=== PATIENT | male | born 1965 | race Caucasian/White ===

== ENCOUNTER 2018-07-26 02:09 | Emergency (ER) | payer BC, SELFPAY ==
--- NOTE | 2018-07-26 03:22 | EDPHYS ---
Physician Documentation [facility] Name: Jose Antonio Summers Age: 53 yrs Sex: Male : 1965 Arrival Date: 07/26/2018 Time: 02:12 Bed 5 Private MD: ED Physician Israel Akhtar HPI: 07/26 03:12 This 53 yrs old Male presents to ER via Wheelchair with complaints of Leg tw4 Pain. 03:12 The patient presents with pain, that is chronic. The complaints affect the right tw4 quadriceps, right knee, right dent and anterior aspect of right ankle. Context: The problem was sustained at home. Onset: The symptoms/episode began/occurred today. Modifying factors: The symptoms are alleviated by nothing. the symptoms are aggravated by nothing. Severity of symptoms: At their worst the symptoms were mild, in the emergency department the symptoms are unchanged. Historical: - Allergies: 02:30 No Known Allergies; fc - Home Meds: 02:30 hydrocortisone 20 mg Oral tab 1 tab 2 times per day [Active]; levothyroxine 25 mcg tab fc 1 tab once daily [Active]; lisinopril 30 mg Oral tab 1 tab once daily [Active]; fenofibrate 160 mg oral tab 1 tab once daily [Active]; atorvastatin oral oral once daily [Active]; gabapentin oral oral 3 times per day [Active]; Zantac 150 mg Oral tab 1 tab once daily [Active]; Lexapro Oral once daily [Active]; AndroGel transdermal transdermal 2 packets nightly [Active]; Lantus 100 unit/mL Sub-Q soln 100 unit nightly [Active]; Humalog 100 unit/mL Sub-Q soln ac and hs on sliding sclae [Active]; - PMHx: 02:30 Hypothyroidism; Hypertension; High Cholesterol; Hyperlipidemia; neuropathy; GERD; fc Depression; Acromegaly; - Immunization history:: Last tetanus immunization: up to date. - Social history:: Smoking status: Patient/guardian denies using tobacco, Patient uses alcohol, occasionally. - Ebola Screening: : Patient negative for fever greater than or equal to 101.5 degrees Fahrenheit, and additional compatible Ebola Virus Disease symptoms Patient denies exposure to infectious person Patient denies travel to an Ebola-affected area in the 21 days before illness onset. ROS: 03:12 Constitutional: Negative for fever, chills, and weight loss, Eyes: Negative for injury, tw4 pain, redness, and discharge, Cardiovascular: Negative for chest pain, palpitations, and edema, Respiratory: Negative for shortness of breath, cough, wheezing, and pleuritic chest pain, Abdomen/GI: Negative for abdominal pain, nausea, vomiting, diarrhea, and constipation, Back: Negative for injury and pain, Skin: Negative for injury, rash, and discoloration, Neuro: Negative for headache, weakness, numbness, tingling, and seizure. 03:12 MS/extremity: Positive for pain. Exam: 03:12 Constitutional: This is a well developed, well nourished patient who is awake, alert, tw4 and in no acute distress. Head/Face: Normocephalic, atraumatic. Chest/axilla: Normal chest wall appearance and motion. Nontender with no deformity. No lesions are appreciated. Cardiovascular: Regular rate and rhythm with a normal S1 and S2. No gallops, murmurs, or rubs. Normal PMI, no JVD. No pulse deficits. Respiratory: Lungs have equal breath sounds bilaterally, clear to auscultation and percussion. No rales, rhonchi or wheezes noted. No increased work of breathing, no retractions or nasal flaring. Abdomen/GI: Soft, non-tender, with normal bowel sounds. No distension or tympany. No guarding or rebound. No evidence of tenderness throughout. Back: No spinal tenderness. No costovertebral tenderness. Full range of motion. MS/ Extremity: Pulses equal, no cyanosis. Neurovascular intact. Full, normal range of motion. Neuro: Awake and alert, GCS 15, oriented to person, place, time, and situation. Cranial nerves II-XII grossly intact. Motor strength 5/5 in all extremities. Sensory grossly intact. Cerebellar exam normal. Normal gait. Vital Signs: 02:10 BP 137 / 87; Pulse 82; Resp 18; Temp 97.3(O); Pulse Ox 95% on R/A; Weight 145.15 kg fc (R); Height 6 ft. 1 in. (185.42 cm) (R); Pain 6/10; 02:10 Body Mass Index 42.22 (145.15 kg, 185.42 cm) MDM: 02:25 Patient medically screened. tw4 03:12 Differential diagnosis: closed fracture, contusion, abrasion, tendonitis. Data tw4 reviewed: vital signs, nurses notes. Test interpretation: by ED physician or midlevel provider: ultrasound negative for DVT. Counseling: I had a detailed discussion with the patient and/or guardian regarding: the historical points, exam findings, and any diagnostic results supporting the discharge/admit diagnosis, lab results, radiology results. Special discussion: I discussed with the patient/guardian in detail that at this point there is no indication for admission to the hospital. It is understood, however, that if the symptoms persist or worsen the patient needs to return immediately for re-evaluation. 07/26 02:27 Order name: Extremity Venous Uni Ltd tw4 Administered Medications: No medications were administered Disposition: 07/26/18 03:21 Discharged to Home. Impression: Sleep related leg cramps. - Condition is Stable. - Discharge Instructions: Leg Cramps. - Prescriptions for Tramadol 50 mg Oral Tablet - take 1 tablet by ORAL route every 8 hours as needed; 12 tablet. - Medication Reconciliation Form, Thank You Letter, Antibiotic Education, Prescription Opioid Use form. - Follow up: Private Physician; When: Upon discharge from the Emergency Department; Reason: If symptoms return, Recheck today's complaints, Continuance of care. Signatures: Dispatcher [employer] EDHortencia Johnson, RN RN Lian Mclain RN RN lp1 Israel Akhtar MD MD tw4 Corrections: (The following items were deleted from the chart) 03:31 03:21 07/26/2018 03:21 Discharged to Home. Impression: Sleep related leg cramps. lp1 Condition is Stable. Forms are Medication Reconciliation Form, Thank You Letter, Antibiotic Education, Prescription Opioid Use. Follow up: Private Physician; When: Upon discharge from the Emergency Department; Reason: If symptoms return, Recheck today's complaints, Continuance of care. tw4
--- NOTE | 2018-07-26 03:22 | ER ---
Nurse's Notes [facility] Name: Jose Antonio Summers Age: 53 yrs Sex: Male : 1965 Arrival Date: 07/26/2018 Time: 02:12 Bed 5 Private MD: Diagnosis: Sleep related leg cramps Presentation: 07/26 02:10 Presenting complaint: Patient states: that he is having leg pain from hip down on the right side since last week of May. Was seen yesterday by PCP and given Gabapentin. He is concerned about the "black and blue spots " on his leg that are coming and going. Transition of care: patient was not received from another setting of care. Onset of symptoms was May 2018. Risk Assessment: Do you want to hurt yourself or someone else? Patient reports no desire to harm self or others. Initial Sepsis Screen: Does the patient meet any 2 criteria? No. Patient's initial sepsis screen is negative. Does the patient have a suspected source of infection? No. Patient's initial sepsis screen is negative. Care prior to arrival: None. 02:10 Method Of Arrival: Wheelchair 02:10 Acuity: SANKET 4 fc Historical: - Allergies: 02:30 No Known Allergies; fc - Home Meds: 02:30 hydrocortisone 20 mg Oral tab 1 tab 2 times per day [Active]; levothyroxine 25 mcg tab fc 1 tab once daily [Active]; lisinopril 30 mg Oral tab 1 tab once daily [Active]; fenofibrate 160 mg oral tab 1 tab once daily [Active]; atorvastatin oral oral once daily [Active]; gabapentin oral oral 3 times per day [Active]; Zantac 150 mg Oral tab 1 tab once daily [Active]; Lexapro Oral once daily [Active]; AndroGel transdermal transdermal 2 packets nightly [Active]; Lantus 100 unit/mL Sub-Q soln 100 unit nightly [Active]; Humalog 100 unit/mL Sub-Q soln ac and hs on sliding sclae [Active]; - PMHx: 02:30 Hypothyroidism; Hypertension; High Cholesterol; Hyperlipidemia; neuropathy; GERD; fc Depression; Acromegaly; - Immunization history:: Last tetanus immunization: up to date. - Social history:: Smoking status: Patient/guardian denies using tobacco, Patient uses alcohol, occasionally. - Ebola Screening: : Patient negative for fever greater than or equal to 101.5 degrees Fahrenheit, and additional compatible Ebola Virus Disease symptoms Patient denies exposure to infectious person Patient denies travel to an Ebola-affected area in the 21 days before illness onset. Screenin:10 Abuse screen: Denies threats or abuse. Nutritional screening: No deficits noted. fc Tuberculosis screening: No symptoms or risk factors identified. Fall Risk None identified. Assessment: 02:15 General: Appears in no apparent distress. Behavior is calm, cooperative, appropriate lp1 for age. Pain: Complains of pain in right leg Pain currently is 6 out of 10 on a pain scale. Quality of pain is described as aching, Aggravated by repositioning, weight bearing. Neuro: No deficits noted. Cardiovascular: No deficits noted. Respiratory: No deficits noted. GI: No deficits noted. : No deficits noted. EENT: No deficits noted. Derm: Skin is pink, warm \\T\\ dry. Musculoskeletal: Range of motion: intact in all extremities. 02:55 Reassessment: Ultrasound at bedside. lp1 Vital Signs: 02:10 BP 137 / 87; Pulse 82; Resp 18; Temp 97.3(O); Pulse Ox 95% on R/A; Weight 145.15 kg (R); Height 6 ft. 1 in. (185.42 cm) (R); Pain 6/10; 02:10 Body Mass Index 42.22 (145.15 kg, 185.42 cm) ED Course: 02:10 Arm band placed on Patient placed in an exam room, on a stretcher. fc 02:10 Patient has correct armband on for positive identification. Bed in low position. Call light in reach. 02:10 No provider procedures requiring assistance completed. fc 02:12 Patient arrived in ED. ds1 02:18 Alis Araujo is Primary Nurse. cc3 02:24 Triage completed. fc 02:25 Israel Akhtar MD is Attending Physician. tw4 02:57 Lian Mclain, ARANZA is Primary Nurse. lp1 03:06 Extremity Venous Uni Ltd US In Process Unspecified. EDMS 03:31 Patient did not have IV access during this emergency room visit. lp1 Administered Medications: No medications were administered Outcome: 03:21 Discharge ordered by . tw4 03:31 Discharged to home ambulatory. lp1 03:31 Condition: good 03:31 Discharge instructions given to patient, Instructed on discharge instructions, follow up and referral plans. medication usage, Demonstrated understanding of instructions, follow-up care, medications, Prescriptions given X 1. 03:31 Patient left the ED. lp1 Signatures: Dispatcher [employer] EDMS Hortencia Dejesus RN RN fc Sanford, Demi ds1 Lian Mclain RN RN lp1 Israel Akhtar MD MD tw4 Alis Araujo cc3
--- NOTE | 2018-07-26 08:27 | RAD REPORT ---
EXAM DESCRIPTION: USExtremity Venous Uni Ltd07/26/2018 3:06 am CLINICAL HISTORY: Right leg pain . COMPARISON: None. FINDINGS: Right common femoral, superficial femoral, popliteal and right posterior tibial veins are compressible and demonstrate augmentation. Doppler demonstrates good flow. IMPRESSION: No evidence of deep venous thrombosis involving the right lower extremity.
== END 2018-07-26 03:31 | disposition home or self-care (01) ==
LOC: ER 02:09
DX: G47.62 Sleep related leg cramps (principal); E03.9 Hypothyroidism, unspecified; I10 Essential (primary) hypertension; E78.00 Pure hypercholesterolemia, unspecified; E78.5 Hyperlipidemia, unspecified; K21.9 Gastro-esophageal reflux disease without esophagitis; F32.9 Major depressive disorder, single episode, unspecified; Z79.4 Long term (current) use of insulin
CPT/HCPCS: 93971; 99283

== ENCOUNTER 2018-08-04 03:01 | Emergency (ER) | payer BC ==
[2018-08-04] MEDS ORDERED: DEXAMETHASONE 10 MG/ML VIAL ONE (03:41)
[2018-08-04] MEDS ORDERED: DIAZEPAM 5 MG TABLET ONE (03:41)
[2018-08-04] MEDS ORDERED: ONDANSETRON 4 MG/2 ML VIAL ONE (03:42)
[2018-08-04] MEDS ORDERED: MORPHINE 4 MG/ML SYR ONE (03:42)
[2018-08-04] MEDS ORDERED: NA CHLORIDE 0.9% 1,000 ML ONE (03:42)
[2018-08-04] MEDS ORDERED: KETOROLAC 30 MG/ML INJ ONE (03:42)
[2018-08-04 05:06] LABS: Urine Blood NEGATIVE (NEG); Urine Glucose 2+ (NEG); Urine Protein NEGATIVE (NEG); Urine pH 5.5 (5.0-7.0)
[2018-08-04 05:38] LABS: Absolute Lymphocytes (CBC) 1.2 K/uL (0.7-4.9); Absolute Monocytes 0.4 K/uL (0.1-1.3); Absolute Neutrophil 4.1 K/uL (1.8-8.0); Basophils % 0.6 % (0-1.3); Eosinophils % 4.2 % (0-4.4); Hematocrit 44.6 % (39.6-49.0); Lymphocytes % 20.1 % (15.3-44.8); MPV 9.6 fL (7.6-11.3); RBC Red Blood Cell Count 4.78 M/uL (4.33-5.43)
--- NOTE | 2018-08-04 06:12 | ER ---
Nurse's Notes [facility] Name: Jose Antonio Summers Age: 53 yrs Sex: Male : 1965 Arrival Date: 08/04/2018 Time: 03:04 Bed 19 Private MD: Diagnosis: Pain in right leg-adductor tendonitis;Pain in right hip;Low back pain;Unspecified kidney failure-insufficency Presentation: 08/04 03:12 Presenting complaint: Patient states: My leg is hurting like last time. Transition of ed1 care: patient was not received from another setting of care. Onset of symptoms was June 2018. Risk Assessment: Do you want to hurt yourself or someone else? Patient reports no desire to harm self or others. Initial Sepsis Screen: Does the patient meet any 2 criteria? No. Patient's initial sepsis screen is negative. Does the patient have a suspected source of infection? No. Patient's initial sepsis screen is negative. Care prior to arrival: None. 03:12 Method Of Arrival: Wheelchair ed1 03:12 Acuity: SANKET 4 ed1 Triage Assessment: 03:16 General: Appears uncomfortable, Behavior is calm, cooperative. Pain: Complains of pain ed1 in right hip Pain radiates to right leg Pain currently is 7 out of 10 on a pain scale. Quality of pain is described as burning, aching, Pain began about 6 weeks ago Is intermittent, Aggravated by increased activity. EENT: No signs and/or symptoms were reported regarding the EENT system. Neuro: Level of Consciousness is awake, alert, obeys commands, Oriented to person, place, time, situation. Cardiovascular: Denies chest pain, Heart tones S1 S2 present. Respiratory: Airway is patent Respiratory effort is even, unlabored, Respiratory pattern is regular, symmetrical, Breath sounds are clear bilaterally. Denies cough, shortness of breath. GI: Abdomen is obese, Bowel sounds present X 4 quads. Abd is soft and non tender X 4 quads. Patient currently denies diarrhea, nausea, vomiting. : No signs and/or symptoms were reported regarding the genitourinary system. Derm: Skin is intact, is healthy with good turgor, Skin is dry, Skin is normal, Skin temperature is warm. Musculoskeletal: Circulation, motion, and sensation intact. Capillary refill < 3 seconds, in bilateral toes. Range of motion: intact in all extremities, Swelling absent Reports pain in right hip. Historical: - Allergies: 03:16 No Known Allergies; ed1 - Home Meds: 03:16 AndroGel transdermal 2 packets nightly [Active]; atorvastatin Oral once daily [Active]; ed1 fenofibrate 160 mg Oral tab 1 tab once daily [Active]; gabapentin Oral 3 times per day [Active]; Humalog 100 unit/mL Sub-Q soln ac and hs on sliding sclae [Active]; hydrocortisone 20 mg Oral tab 1 tab 2 times per day [Active]; Lantus 100 unit/mL Sub-Q soln 100 unit nightly [Active]; levothyroxine 25 mcg tab 1 tab once daily [Active]; Lexapro Oral once daily [Active]; lisinopril 30 mg Oral tab 1 tab once daily [Active]; Zantac 150 mg Oral tab 1 tab once daily [Active]; - PMHx: 03:16 acromegaly; Depression; GERD; High Cholesterol; Hyperlipidemia; Hypertension; ed1 Hypothyroidism; neuropathy; - Immunization history:: Adult Immunizations up to date. - Social history:: Smoking status: Patient/guardian denies using tobacco. - Ebola Screening: : Patient negative for fever greater than or equal to 101.5 degrees Fahrenheit, and additional compatible Ebola Virus Disease symptoms Patient denies exposure to infectious person Patient denies travel to an Ebola-affected area in the 21 days before illness onset No symptoms or risks identified at this time. - Family history:: not pertinent. Screenin:20 Abuse screen: Denies threats or abuse. Denies injuries from another. Nutritional ed1 screening: No deficits noted. Tuberculosis screening: No symptoms or risk factors identified. Fall Risk No fall in past 12 months (0 pts). No secondary diagnosis (0 pts). No IV (0 pts). Ambulatory Aid- Crutches/Cane/Walker (15 pts). Gait- Weak (10 pts.). Mental Status- Oriented to own ability (0 pts). Total Castellanos Fall Scale indicates Low Risk Score (25-44 pts). Fall prevention measures have been instituted. Side Rails Up X 2 Frequent Obs/Assesments occuring As available Patient and Family Educated on Fall Prevention Program and strategies. Assessment: 03:20 General: See triage assessment. ed1 04:07 Reassessment: No changes from previously documented assessment. Patient and/or family ed1 updated on plan of care and expected duration. Pain level reassessed. Patient is alert, oriented x 3, equal unlabored respirations, skin warm/dry/pink. Pt returned from x-ray. Pt requests to remain in wheelchair for comfort. Patient states symptoms have not improved. 04:51 Reassessment: Pt ambulatory to bathroom with steady gait. Pt states "I almost feel 100% ed1 again.". 05:13 Reassessment: Patient appears in no apparent distress at this time. Patient and/or ed1 family updated on plan of care and expected duration. Pain level reassessed. Patient is alert, oriented x 3, equal unlabored respirations, skin warm/dry/pink. Patient states feeling better. Patient states symptoms have improved. 06:47 Reassessment: Patient appears in no apparent distress at this time. Patient and/or ed1 family updated on plan of care and expected duration. Pain level reassessed. Patient is alert, oriented x 3, equal unlabored respirations, skin warm/dry/pink. Patient states feeling better. Patient states symptoms have improved. Vital Signs: 03:16 BP 150 / 96; Pulse 70; Resp 18; Temp 98.1(O); Pulse Ox 94% on R/A; Pain 7/10; ed1 04:07 BP 131 / 78; Pulse 64; Resp 16; Temp 98.1(O); Pulse Ox 94% on R/A; Pain 7/10; ed1 05:13 BP 142 / 83; Pulse 67; Resp 18; Temp 98.5(O); Pulse Ox 96% on R/A; Pain 4/10; ed1 06:47 BP 139 / 76; Pulse 71; Resp 19; Temp 97.9(O); Pulse Ox 94% on R/A; Pain 4/10; ed1 ED Course: 03:04 Patient arrived in ED. ds1 03:05 Delia Oro, ARANZA is Primary Nurse. ed1 03:07 El Castillo MD is Attending Physician. marco 03:13 Triage completed. ed1 03:16 Arm band placed on left wrist. ed1 03:20 Patient has correct armband on for positive identification. Bed in low position. Call ed1 light in reach. Side rails up X2. Pulse ox on. NIBP on. 03:30 Comprehensive Metabolic Panel Sent. jd3 03:30 CBC with Diff Sent. jd3 03:38 Initial lab(s) drawn, by me, sent to lab. Inserted saline lock: 20 gauge in right ed1 forearm, using aseptic technique. Blood collected. 03:50 Patient moved to radiology via wheelchair. kw 03:50 X-ray completed. Patient tolerated procedure well. kw 03:56 Patient moved back from radiology. kw 03:59 Pelvis XRAY In Process Unspecified. EDMS 03:59 Lumbar Spine (3 Views) XRAY In Process Unspecified. EDMS 03:59 Femur Right XRAY In Process Unspecified. EDMS 04:51 Urine collected: clean catch specimen, clear. ed1 05:13 Resting quietly. Awaiting disposition. ed1 05:33 Lab(s) recollected, by me, sent to lab. ed1 06:09 Manjit Ventura MD is Referral Physician. [facility] 06:29 Awaiting: Dr. Castillo to speak with patient in regards to discharge. ed1 06:47 No provider procedures requiring assistance completed. IV discontinued, intact, ed1 bleeding controlled, No redness/swelling at site. Pressure dressing applied. 06:54 Primary Nurse role handed off by Delia Oro RN ed1 Administered Medications: 03:39 Drug: NS 0.9% 1000 ml Route: IV; Rate: 125 ml/hr; Site: right forearm; ed1 06:48 Follow up: IV Status: Order to discontinue infusion; IV Intake: 325ml ed1 03:39 Drug: TORadol 30 mg Route: IVP; Site: right forearm; ed1 04:30 Follow up: Response: No adverse reaction; Pain is decreased ed1 03:39 Drug: Zofran 4 mg Route: IVP; Site: right forearm; ed1 04:45 Follow up: Response: No adverse reaction ed1 03:40 Drug: morphine 4 mg Route: IVP; Site: right forearm; ed1 04:30 Follow up: Response: No adverse reaction; Pain is decreased ed1 04:10 Drug: Decadron - Dexamethasone 10 mg Route: IVP; Site: right forearm; ed1 04:45 Follow up: Response: No adverse reaction; Pain is decreased ed1 04:11 Drug: Valium 5 mg Route: PO; ed1 04:45 Follow up: Response: No adverse reaction; Pain is decreased ed1 Intake: 06:48 IV: 325ml; Total: 325ml. ed1 Outcome: 06:11 Discharge ordered by . marco 06:47 Discharged to home ambulatory, with friend. ed1 06:47 Condition: good 06:47 Discharge instructions given to patient, Instructed on discharge instructions, follow up and referral plans. medication usage, Demonstrated understanding of instructions, follow-up care, medications, Prescriptions given X 3. 06:49 Patient left the ED. ed1 Signatures: Dispatcher [employer] EDMS El Castillo MD MD cha Sanford, Demi ds1 Delia Oro RN RN ed1 Garima Butt Jonathon RN RN jd3
--- NOTE | 2018-08-04 06:12 | EDPHYS ---
Physician Documentation [facility] Name: Jose Antonio Summers Age: 53 yrs Sex: Male : 1965 Arrival Date: 08/04/2018 Time: 03:04 Bed 19 Private MD: LINDA Physician El Castillo HPI: 08/04 03:19 This 53 yrs old Male presents to ER via Wheelchair with complaints of Leg marco Pain. 03:19 The patient presents with decreased range of motion, pain. The complaints affect the marco right upper thigh and right quadriceps. Context: The problem was sustained at an unknown site. Onset: The symptoms/episode began/occurred 4 week(s) ago. Modifying factors: The symptoms are alleviated by nothing. remaining still, the symptoms are aggravated by nothing. Associated signs and symptoms: The patient has no apparent associated signs or symptoms. Severity of symptoms: At their worst the symptoms were moderate, in the emergency department the symptoms are unchanged. The patient has experienced similar episodes in the past, several times. Historical: - Allergies: 03:16 No Known Allergies; ed1 - Home Meds: 03:16 AndroGel transdermal 2 packets nightly [Active]; atorvastatin Oral once daily [Active]; ed1 fenofibrate 160 mg Oral tab 1 tab once daily [Active]; gabapentin Oral 3 times per day [Active]; Humalog 100 unit/mL Sub-Q soln ac and hs on sliding sclae [Active]; hydrocortisone 20 mg Oral tab 1 tab 2 times per day [Active]; Lantus 100 unit/mL Sub-Q soln 100 unit nightly [Active]; levothyroxine 25 mcg tab 1 tab once daily [Active]; Lexapro Oral once daily [Active]; lisinopril 30 mg Oral tab 1 tab once daily [Active]; Zantac 150 mg Oral tab 1 tab once daily [Active]; - PMHx: 03:16 acromegaly; Depression; GERD; High Cholesterol; Hyperlipidemia; Hypertension; ed1 Hypothyroidism; neuropathy; - Immunization history:: Adult Immunizations up to date. - Social history:: Smoking status: Patient/guardian denies using tobacco. - Ebola Screening: : Patient negative for fever greater than or equal to 101.5 degrees Fahrenheit, and additional compatible Ebola Virus Disease symptoms Patient denies exposure to infectious person Patient denies travel to an Ebola-affected area in the 21 days before illness onset No symptoms or risks identified at this time. - Family history:: not pertinent. ROS: 03:19 Constitutional: Negative for fever, chills, and weight loss, Eyes: Negative for injury, marco pain, redness, and discharge, ENT: Negative for injury, pain, and discharge, Neck: Negative for injury, pain, and swelling, Cardiovascular: Negative for chest pain, palpitations, and edema, Respiratory: Negative for shortness of breath, cough, wheezing, and pleuritic chest pain, Abdomen/GI: Negative for abdominal pain, nausea, vomiting, diarrhea, and constipation, Back: Negative for injury and pain, : Negative for injury, bleeding, discharge, and swelling, Skin: Negative for injury, rash, and discoloration, Neuro: Negative for headache, weakness, numbness, tingling, and seizure, Psych: Negative for depression, anxiety, suicide ideation, homicidal ideation, and hallucinations, Allergy/Immunology: Negative for hives, rash, and allergies, Endocrine: Negative for neck swelling, polydipsia, polyuria, polyphagia, and marked weight changes, Hematologic/Lymphatic: Negative for swollen nodes, abnormal bleeding, and unusual bruising. 03:19 MS/extremity: Positive for decreased range of motion, pain, of the right inner thigh. Exam: 03:19 Constitutional: This is a well developed, well nourished patient who is awake, alert, marco and in no acute distress. Head/Face: Normocephalic, atraumatic. Eyes: Pupils equal round and reactive to light, extra-ocular motions intact. Lids and lashes normal. Conjunctiva and sclera are non-icteric and not injected. Cornea within normal limits. Periorbital areas with no swelling, redness, or edema. ENT: Nares patent. No nasal discharge, no septal abnormalities noted. Tympanic membranes are normal and external auditory canals are clear. Oropharynx with no redness, swelling, or masses, exudates, or evidence of obstruction, uvula midline. Mucous membranes moist. Neck: Trachea midline, no thyromegaly or masses palpated, and no cervical lymphadenopathy. Supple, full range of motion without nuchal rigidity, or vertebral point tenderness. No Meningismus. Chest/axilla: Normal chest wall appearance and motion. Nontender with no deformity. No lesions are appreciated. Cardiovascular: Regular rate and rhythm with a normal S1 and S2. No gallops, murmurs, or rubs. Normal PMI, no JVD. No pulse deficits. Respiratory: Lungs have equal breath sounds bilaterally, clear to auscultation and percussion. No rales, rhonchi or wheezes noted. No increased work of breathing, no retractions or nasal flaring. Abdomen/GI: Soft, non-tender, with normal bowel sounds. No distension or tympany. No guarding or rebound. No evidence of tenderness throughout. Back: No spinal tenderness. No costovertebral tenderness. Full range of motion. Male : Normal genitalia with no discharge or lesions. Skin: Warm, dry with normal turgor. Normal color with no rashes, no lesions, and no evidence of cellulitis. Neuro: Awake and alert, GCS 15, oriented to person, place, time, and situation. Cranial nerves II-XII grossly intact. Motor strength 5/5 in all extremities. Sensory grossly intact. Cerebellar exam normal. Normal gait. Psych: Awake, alert, with orientation to person, place and time. Behavior, mood, and affect are within normal limits. 03:19 Musculoskeletal/extremity: Extremities: noted in the right inner thigh: decreased ROM, pain, ROM: full active range of motion, full passive range of motion, limited active range of motion due to pain, limited passive range of motion due to pain, Circulation is intact in all extremities. Sensation intact. Compartment Syndrome exam of affected extremity: is normal. Weight bearing: able to fully bear weight, without difficulty, DVT Exam: no swelling, no tenderness, negative Homans' sign noted on exam, no appreciated bluish discoloration, no erythema, no increased warmth, pain, Calves: are non-tender. Vital Signs: 03:16 BP 150 / 96; Pulse 70; Resp 18; Temp 98.1(O); Pulse Ox 94% on R/A; Pain 7/10; ed1 04:07 BP 131 / 78; Pulse 64; Resp 16; Temp 98.1(O); Pulse Ox 94% on R/A; Pain 7/10; ed1 05:13 BP 142 / 83; Pulse 67; Resp 18; Temp 98.5(O); Pulse Ox 96% on R/A; Pain 410; ed1 06:47 BP 139 / 76; Pulse 71; Resp 19; Temp 97.9(O); Pulse Ox 94% on R/A; Pain 410; ed1 MDM: 03:07 Patient medically screened. [facility] 03:19 Data reviewed: vital signs, nurses notes, lab test result(s), radiologic studies, marco doppler, plain films. 08/04 03:19 Order name: CBC with Diff; Complete Time: 06:11 [facility] 08/04 03:19 Order name: Comprehensive Metabolic Panel; Complete Time: 06:28 [facility] 08/04 03:19 Order name: Pelvis XRAY [facility] 08/04 03:19 Order name: Lumbar Spine (3 Views) XRAY [facility] 08/04 03:30 Order name: Femur Right XRAY [facility] 08/04 04:58 Order name: Urine Dipstick--Ancillary (enter results); Complete Time: 06:11 [facility] 08/04 03:19 Order name: Urine Dipstick-Ancillary (obtain specimen); Complete Time: 04:52 [facility] Administered Medications: 03:39 Drug: NS 0.9% 1000 ml Route: IV; Rate: 125 ml/hr; Site: right forearm; ed1 06:48 Follow up: IV Status: Order to discontinue infusion; IV Intake: 325ml ed1 03:39 Drug: TORadol 30 mg Route: IVP; Site: right forearm; ed1 04:30 Follow up: Response: No adverse reaction; Pain is decreased ed1 03:39 Drug: Zofran 4 mg Route: IVP; Site: right forearm; ed1 04:45 Follow up: Response: No adverse reaction ed1 03:40 Drug: morphine 4 mg Route: IVP; Site: right forearm; ed1 04:30 Follow up: Response: No adverse reaction; Pain is decreased ed1 04:10 Drug: Decadron - Dexamethasone 10 mg Route: IVP; Site: right forearm; ed1 04:45 Follow up: Response: No adverse reaction; Pain is decreased ed1 04:11 Drug: Valium 5 mg Route: PO; ed1 04:45 Follow up: Response: No adverse reaction; Pain is decreased ed1 Disposition: 08/04/18 06:11 Discharged to Home. Impression: Pain in right leg - adductor tendonitis, Pain in right hip, Low back pain, Unspecified kidney failure - insufficency. - Condition is Stable. - Discharge Instructions: Joint Pain, Arthritis, Back Pain, Adult, Musculoskeletal Pain, Pain Without a Known Cause, Back Injury Prevention, [id number], Back Pain, Adult, [id number]-fi-Okbq, Hip Pain, Chronic Kidney Disease, Adult, Jgws-pq-Opyu. - Prescriptions for dexamethasone 2 mg Oral tablet - take 1 tablet by ORAL route 2 times per day; 14 tablet. Tylenol- Codeine #3 300-30 mg Oral Tablet - take 2 tablet by ORAL route every 6 hours As needed; 30 tablet. Valium 5 mg Oral Tablet - take 1 tablet by ORAL route every 8 hours As needed; 20 tablet. - Medication Reconciliation Form, Thank You Letter, Antibiotic Education, Prescription Opioid Use form. - Follow up: Private Physician; When: 2 - 3 days; Reason: Recheck today's complaints, Continuance of care, Re-evaluation by your physician. Follow up: Manjit Ventura; When: 2 - 3 days; Reason: Recheck today's complaints, Re-evaluation by your physician. - Problem is new. - Symptoms have improved. Signatures: Dispatcher [employer] EDMS El Castillo MD MD cha Riggs, Erika RN RN ed1 Corrections: (The following items were deleted from the chart) 06:31 06:11 08/04/2018 06:11 Discharged to Home. Impression: Pain in right leg - adductor marco tendonitis; Pain in right hip; Low back pain. Condition is Stable. Discharge Instructions: Musculoskeletal Pain, Pain Without a Known Cause, Joint Pain, Arthritis, Back Pain, Adult, Back Injury Prevention, [id number], Back Pain, Adult, Vlfm-[id number], Hip Pain. Prescriptions for dexamethasone 2 mg Oral tablet - take 1 tablet by ORAL route 2 times per day; 14 tablet, Ibuprofen 600 mg Oral Tablet - take 1 tablet by ORAL route every 6 hours As needed take with food; 20 tablet, Tylenol-Codeine #3 300-30 mg Oral Tablet - take 2 tablet by ORAL route every 6 hours As needed; 30 tablet, Valium 5 mg Oral Tablet - take 1 tablet by ORAL route every 8 hours As needed; 20 tablet. and Forms are Medication Reconciliation Form, Thank You Letter, Antibiotic Education, Prescription Opioid Use. Follow up: Private Physician; When: 2 - 3 days; Reason: Recheck today's complaints, Continuance of care, Re-evaluation by your physician. Follow up: Manjit Ventura; When: 2 - 3 days; Reason: Recheck today's complaints, Re-evaluation by your physician. Problem is new. Symptoms have improved. marco 06:49 06:31 08/04/2018 06:11 Discharged to Home. Impression: Pain in right leg - adductor ed1 tendonitis; Pain in right hip; Low back pain; Unspecified kidney failure - insufficency. Condition is Stable. Discharge Instructions: Musculoskeletal Pain, Pain Without a Known Cause, Joint Pain, Arthritis, Back Pain, Adult, Back Injury Prevention, Rncq-[id number], Back Pain, Adult, Kwbh-bw-Dqhn, Hip Pain. Prescriptions for dexamethasone 2 mg Oral tablet - take 1 tablet by ORAL route 2 times per day; 14 tablet, Ibuprofen 600 mg Oral Tablet - take 1 tablet by ORAL route every 6 hours As needed take with food; 20 tablet, Tylenol-Codeine #3 300-30 mg Oral Tablet - take 2 tablet by ORAL route every 6 hours As needed; 30 tablet, Valium 5 mg Oral Tablet - take 1 tablet by ORAL route every 8 hours As needed; 20 tablet. and Forms are Medication Reconciliation Form, Thank You Letter, Antibiotic Education, Prescription Opioid Use. Follow up: Private Physician; When: 2 - 3 days; Reason: Recheck today's complaints, Continuance of care, Re-evaluation by your physician. Follow up: Manjit Ventura; When: 2 - 3 days; Reason: Recheck today's complaints, Re-evaluation by your physician. Problem is new. Symptoms have improved. marco
[2018-08-04 06:19] LABS: Albumin 3.6 g/dL (3.4-5.0); Bilirubin Total 0.4 mg/dL (0.2-1.0); Protein, Total 7.2 g/dL (6.4-8.2)
--- NOTE | 2018-08-04 11:52 | RAD REPORT ---
EXAM DESCRIPTION: RAD - Pelvis - 08/04/2018 3:57 am CLINICAL HISTORY: PAIN COMPARISON: Femur Right dated 08/04/2018 FINDINGS: No acute fracture or dislocation seen. Slight dysplastic changes seen to both femoral head s. No AVN pattern.
--- NOTE | 2018-08-04 11:53 | RAD REPORT ---
EXAM DESCRIPTION: RAD - Femur Right - 08/04/2018 3:57 am CLINICAL HISTORY: PAIN COMPARISON: No comparisons FINDINGS: No fracture or dislocation is seen. No aggressive marrow lesion.
--- NOTE | 2018-08-04 11:54 | RAD REPORT ---
EXAM DESCRIPTION: RAD - Lumbar Spine 3 Views - 08/04/2018 3:57 am CLINICAL HISTORY: PAIN Radiculopathy COMPARISON: No comparisons FINDINGS: Vertebral body heights appear maintained. No compression fracture noted. Prominent degener ative changes seen in the lower lumbar spine, greatest at L5-S1 there is disc thinning and posterior osteophyte. No spondylolysis or spondylolisthesis. IMPRESSION: Moderate lower lumbar spondylosis seen.
== END 2018-08-04 06:49 | disposition home or self-care (01) ==
LOC: ER 03:01
DX: M76.891 Other specified enthesopathies of right lower limb, excluding foot (principal); M54.5 Low back pain; N19 Unspecified kidney failure; F32.9 Major depressive disorder, single episode, unspecified; K21.9 Gastro-esophageal reflux disease without esophagitis; E78.00 Pure hypercholesterolemia, unspecified; E78.5 Hyperlipidemia, unspecified; I10 Essential (primary) hypertension; E03.9 Hypothyroidism, unspecified
CPT/HCPCS: 36415; 72100; 72170; 80053; 81003; 85025; 96361; 96374; 96375; 99284; J1100; J2405; J7030

== ENCOUNTER 2018-08-11 22:25 | Emergency (ER) | payer BC ==
[2018-08-11] MEDS ORDERED: MEPERIDINE HCL 50 MG/ML AMP ONE (23:31)
[2018-08-11] MEDS ORDERED: ONDANSETRON 4 MG/2 ML VIAL ONE (23:31)
[2018-08-11] MEDS ORDERED: NA CHLORIDE 0.9% 100 ML IV ONE (23:31)
--- NOTE | 2018-08-12 00:07 | EDPHYS ---
Physician Documentation [facility] Name: Jose Antonio Summers Age: 53 yrs Sex: Male : 1965 Arrival Date: 08/11/2018 Time: 22:27 Bed 23 Private MD: ED Physician Peter Silva HPI: 08/11 23:10 This 53 yrs old Male presents to ER via Ambulatory with complaints of Leg pkl Pain. 23:11 The patient or guardian reports pain. The complaints affect the right hip. Onset: The pkl symptoms/episode began/occurred 2 month(s) ago, and became worse today. The patient has been recently seen at the [facility] Emergency Department, last week, for similar complaints X-rays were performed, an ultrasound was performed. Patient said he has recurring pain in his right hip. Said pain radiating down right leg. Has appointment with [facility] in [place] in October.. Historical: - Allergies: 22:47 No Known Allergies; aa1 - Home Meds: 22:47 AndroGel transdermal 2 packets nightly [Active]; atorvastatin Oral once daily [Active]; aa1 fenofibrate 160 mg Oral tab 1 tab once daily [Active]; gabapentin Oral 3 times per day [Active]; Humalog 100 unit/mL Sub-Q soln ac and hs on sliding sclae [Active]; hydrocortisone 20 mg Oral tab 1 tab 2 times per day [Active]; Lantus 100 unit/mL Sub-Q soln 100 unit nightly [Active]; levothyroxine 25 mcg tab 1 tab once daily [Active]; Lexapro Oral once daily [Active]; lisinopril 30 mg Oral tab 1 tab once daily [Active]; Zantac 150 mg Oral tab 1 tab once daily [Active]; - PMHx: 22:47 acromegaly; Depression; GERD; High Cholesterol; Hyperlipidemia; Hypertension; aa1 Hypothyroidism; neuropathy; - Immunization history:: Adult Immunizations unknown. - Social history:: Smoking status: Patient/guardian denies using tobacco. - Ebola Screening: : No symptoms or risks identified at this time. ROS: 23:11 Eyes: Negative for injury, pain, redness, and discharge, ENT: Negative for injury, pkl pain, and discharge, Neck: Negative for injury, pain, and swelling, Cardiovascular: Negative for chest pain, palpitations, and edema, Respiratory: Negative for shortness of breath, cough, wheezing, and pleuritic chest pain, Abdomen/GI: Negative for abdominal pain, nausea, vomiting, diarrhea, and constipation, Back: Negative for injury and pain, : Negative for injury, bleeding, discharge, and swelling. 23:11 MS/extremity: Positive for pain, of the right hip. 23:11 Skin: Negative for rash. 23:11 Neuro: Negative for altered mental status. Exam: 23:11 Head/Face: Normocephalic, atraumatic. Eyes: Pupils equal round and reactive to light, pkl extra-ocular motions intact. Lids and lashes normal. Conjunctiva and sclera are non-icteric and not injected. Cornea within normal limits. Periorbital areas with no swelling, redness, or edema. ENT: Nares patent. No nasal discharge, no septal abnormalities noted. Tympanic membranes are normal and external auditory canals are clear. Oropharynx with no redness, swelling, or masses, exudates, or evidence of obstruction, uvula midline. Mucous membranes moist. Neck: Trachea midline, no thyromegaly or masses palpated, and no cervical lymphadenopathy. Supple, full range of motion without nuchal rigidity, or vertebral point tenderness. No Meningismus. Chest/axilla: Normal chest wall appearance and motion. Nontender with no deformity. No lesions are appreciated. Cardiovascular: Regular rate and rhythm with a normal S1 and S2. No gallops, murmurs, or rubs. Normal PMI, no JVD. No pulse deficits. Respiratory: Lungs have equal breath sounds bilaterally, clear to auscultation and percussion. No rales, rhonchi or wheezes noted. No increased work of breathing, no retractions or nasal flaring. Abdomen/GI: Soft, non-tender, with normal bowel sounds. No distension or tympany. No guarding or rebound. No evidence of tenderness throughout. Back: No spinal tenderness. No costovertebral tenderness. Full range of motion. Skin: Warm, dry with normal turgor. Normal color with no rashes, no lesions, and no evidence of cellulitis. 23:11 Back: Straight leg raises: of both lower extremities does not illicit pain. 23:11 Musculoskeletal/extremity: Extremities: grossly normal except: noted in the right hip: pain. 23:11 Skin: Exam negative for rash. 23:11 Neuro: Orientation: is normal, Mentation: is normal, Cranial nerves: grossly normal, Motor: is normal. Vital Signs: 22:40 BP 160 / 79; Pulse 76; Resp 20; Temp 98.2; Pulse Ox 94% on R/A; Weight 145.15 kg; aa1 Height 6 ft. 1 in. (185.42 cm); Pain 10/10; 23:55 BP 135 / 82; Pulse 75; Resp 17 S; Temp 98; Pulse Ox 95% on R/A; ca1 22:40 Body Mass Index 42.22 (145.15 kg, 185.42 cm) aa1 MDM: 22:37 Patient medically screened. pkl 08/12 00:01 Data reviewed: vital signs, nurses notes. pkl 00:01 ED course: Patient feeling better. Advised to follow up with another Specialist next pkl week. Patient understood instruction.. 08/11 23:10 Order name: Saline Lock; Complete Time: 23:13 pkl Administered Medications: 08/11 23:12 Drug: Zofran 4 mg Route: IVP; Site: right hand; ca1 23:51 Follow up: Response: No adverse reaction; Nausea is decreased ca1 23:15 Drug: Demerol 50 mg Route: IVP; Site: right hand; ca1 23:51 Follow up: Response: No adverse reaction; Pain is decreased ca1 23:56 Drug: morphine 4 mg Route: IVP; Site: right hand; ca1 08/12 00:15 Follow up: Response: No adverse reaction; Pain is decreased ca1 Disposition: 08/12/18 00:05 Discharged to Home. Impression: Recurrent pain right hip. Right sciatica. - Condition is Stable. - Prescriptions for Tylenol- Codeine #3 300-30 mg Oral Tablet - take 2 tablet by ORAL route every 6 hours As needed; 30 tablet. - Medication Reconciliation Form, Thank You Letter, Antibiotic Education, Prescription Opioid Use form. - Follow up: Asher Hummel MD; When: 2 - 3 days; Reason: Re-evaluation by your physician. - Problem is new. - Symptoms have improved. Signatures: Nan Castrejon RN RN aa1 Peter Silva MD MD pkl Acob, Josephine, RN RN ca1 Corrections: (The following items were deleted from the chart) 00:15 00:05 08/12/2018 00:05 Discharged to Home. Impression: Recurrent pain right hip. Right ca1 sciatica. Condition is Stable. Forms are Medication Reconciliation Form, Thank You Letter, Antibiotic Education, Prescription Opioid Use. Follow up: Asher Hummel; When: 2 - 3 days; Reason: Re-evaluation by your physician. Problem is new. Symptoms have improved. pkl
--- NOTE | 2018-08-12 00:07 | ER ---
Nurse's Notes [facility] Name: Jose Antonio Summers Age: 53 yrs Sex: Male : 1965 Arrival Date: 08/11/2018 Time: 22:27 Bed 23 Private MD: Diagnosis: Recurrent pain right hip. Right sciatica Presentation: 08/11 22:41 Presenting complaint: Patient states: RLE pain x 1 month. Has been seen in this ED aa1 twice previously for same complaint and has normal x-rays, u/s, and labs but the pain has not improved and he is not able to see a specialist until October. Transition of care: patient was not received from another setting of care. Onset of symptoms was June 2018. Risk Assessment: Do you want to hurt yourself or someone else? Patient reports no desire to harm self or others. Initial Sepsis Screen: Does the patient meet any 2 criteria? No. Patient's initial sepsis screen is negative. Does the patient have a suspected source of infection? No. Patient's initial sepsis screen is negative. Care prior to arrival: None. 22:41 Method Of Arrival: Ambulatory aa1 22:41 Acuity: SANKET 4 aa1 Triage Assessment: 22:40 General: Appears in no apparent distress. uncomfortable, Behavior is calm, cooperative, aa1 appropriate for age. Historical: - Allergies: 22:47 No Known Allergies; aa1 - Home Meds: 22:47 AndroGel transdermal 2 packets nightly [Active]; atorvastatin Oral once daily [Active]; aa1 fenofibrate 160 mg Oral tab 1 tab once daily [Active]; gabapentin Oral 3 times per day [Active]; Humalog 100 unit/mL Sub-Q soln ac and hs on sliding sclae [Active]; hydrocortisone 20 mg Oral tab 1 tab 2 times per day [Active]; Lantus 100 unit/mL Sub-Q soln 100 unit nightly [Active]; levothyroxine 25 mcg tab 1 tab once daily [Active]; Lexapro Oral once daily [Active]; lisinopril 30 mg Oral tab 1 tab once daily [Active]; Zantac 150 mg Oral tab 1 tab once daily [Active]; - PMHx: 22:47 acromegaly; Depression; GERD; High Cholesterol; Hyperlipidemia; Hypertension; aa1 Hypothyroidism; neuropathy; - Immunization history:: Adult Immunizations unknown. - Social history:: Smoking status: Patient/guardian denies using tobacco. - Ebola Screening: : No symptoms or risks identified at this time. Screenin:41 Abuse screen: Denies threats or abuse. Denies injuries from another. Nutritional ca1 screening: No deficits noted. Tuberculosis screening: Fall Risk None identified. Assessment: 22:41 General: Appears in no apparent distress. comfortable, Behavior is calm, cooperative, ca1 appropriate for age. Pain: Complains of pain in right leg Pain currently is 10 out of 10 on a pain scale. Pain began 3 weeks ago. Neuro: Level of Consciousness is awake, alert, obeys commands, Oriented to person, place, time, situation. Cardiovascular: Heart tones S1 S2 present Capillary refill < 3 seconds Patient's skin is warm and dry. Respiratory: Airway is patent Respiratory effort is even, unlabored, Respiratory pattern is regular, symmetrical, Breath sounds are clear bilaterally. GI: No deficits noted. No signs and/or symptoms were reported involving the gastrointestinal system. : No deficits noted. No signs and/or symptoms were reported regarding the genitourinary system. EENT: No deficits noted. No signs and/or symptoms were reported regarding the EENT system. Derm: Skin is intact, is healthy with good turgor, Skin is pink, warm \T\ dry. Musculoskeletal: Circulation, motion, and sensation intact. Capillary refill < 3 seconds, Range of motion: intact in all extremities. 23:55 Reassessment: Patient appears in no apparent distress at this time. Patient and/or ca1 family updated on plan of care and expected duration. Pain level reassessed. Patient is alert, oriented x 3, equal unlabored respirations, skin warm/dry/pink. Patient states feeling better. 08/12 00:13 Reassessment: Patient appears in no apparent distress at this time. Patient is alert, ca1 oriented x 3, equal unlabored respirations, skin warm/dry/pink. Wheeled out to a friend's car who is going to drive pt home Patient states feeling better. Vital Signs: 08/11 22:40 BP 160 / 79; Pulse 76; Resp 20; Temp 98.2; Pulse Ox 94% on R/A; Weight 145.15 kg; aa1 Height 6 ft. 1 in. (185.42 cm); Pain 10/10; 23:55 BP 135 / 82; Pulse 75; Resp 17 S; Temp 98; Pulse Ox 95% on R/A; ca1 22:40 Body Mass Index 42.22 (145.15 kg, 185.42 cm) aa1 ED Course: 22:27 Patient arrived in ED. am2 22:34 Josephine Bustamante RN is Primary Nurse. ca1 22:37 Peter Sliva MD is Attending Physician. pkl 22:40 Arm band placed on right wrist. aa1 22:41 Patient has correct armband on for positive identification. Bed in low position. Call ca1 light in reach. Side rails up X 1. Pulse ox on. NIBP on. 22:41 No provider procedures requiring assistance completed. ca1 22:45 Triage completed. aa1 23:13 Inserted saline lock: 20 gauge in right hand, using aseptic technique. ca1 08/12 00:04 Asher Hummel MD is Referral Physician. pkl 00:14 IV discontinued, intact, bleeding controlled, No redness/swelling at site. Pressure ca1 dressing applied. Administered Medications: 08/11 23:12 Drug: Zofran 4 mg Route: IVP; Site: right hand; ca1 23:51 Follow up: Response: No adverse reaction; Nausea is decreased ca1 23:15 Drug: Demerol 50 mg Route: IVP; Site: right hand; ca1 23:51 Follow up: Response: No adverse reaction; Pain is decreased ca1 23:56 Drug: morphine 4 mg Route: IVP; Site: right hand; ca1 08/12 00:15 Follow up: Response: No adverse reaction; Pain is decreased ca1 Outcome: 00:05 Discharge ordered by . pkl 00:14 Discharged to home via wheelchair. ca1 00:14 Condition: stable 00:14 Discharge instructions given to patient, Instructed on discharge instructions, follow up and referral plans. medication usage, Demonstrated understanding of instructions, follow-up care, medications, Prescriptions given X 2. 00:15 Patient left the ED. ca1 Signatures: Nan Castrejon RN RN aa1 Peter Silva MD MD pkl Moreno, Amanda am2 Josephine Bustamante RN RN ca1 Corrections: (The following items were deleted from the chart) 00:04 08/11 23:55 BP 135 / 82; Pulse 75bpm; Resp 17bpm; Pulse Ox 95% RA; Temp 98F; ca1 ca1
[2018-08-12] MEDS ORDERED: MORPHINE 4 MG/ML SYR ONE (00:09)
== END 2018-08-12 00:15 | disposition home or self-care (01) ==
LOC: ER 22:25
DX: M54.31 Sciatica, right side (principal); I10 Essential (primary) hypertension; E78.5 Hyperlipidemia, unspecified; E78.00 Pure hypercholesterolemia, unspecified; F32.9 Major depressive disorder, single episode, unspecified; Z79.4 Long term (current) use of insulin
CPT/HCPCS: 96374; 96375; 99284; J2175; J2405

== ENCOUNTER 2018-08-15 13:14 | Emergency (ER) | payer BC ==
--- NOTE | 2018-08-15 13:49 | EDPHYS ---
Physician Documentation [facility] Name: Jose Antonio Summers Age: 53 yrs Sex: Male : 1965 Arrival Date: 08/15/2018 Time: 13:20 Bed 28 Private MD: ED Physician Bryn Herbert HPI: 08/15 13:42 This 53 yrs old Male presents to ER via Wheelchair with complaints of Leg kb Pain. 13:42 The patient or guardian reports pain. sustained from unknown reason, There is no kb obvious deformity, The patient is able to self ambulate. The patient is able to bear their full body weight. The patient's discomfort radiates to the right leg. The complaints affect the right hip. Onset: The symptoms/episode began/occurred 2 month(s) ago. Modifying factors: The symptoms are alleviated by nothing, the symptoms are aggravated by nothing. Associated signs and symptoms: Loss of consciousness: the patient experienced no loss of consciousness, Pertinent positives: None. Severity of symptoms: At their worst the symptoms were moderate, in the emergency department the symptoms are unchanged. The patient has experienced similar episodes in the past. The patient has been recently seen by a physician:. 13:44 Pt c/o right hip pain that radiates down leg. STates it started in May, got worse in kb June. Has been here for this several times and has had US and x-rays that have been normal. Has appt with Dr Hummel tomorrow. States pain was not relieved last night or today by medications he has at home so he needs something until he can get to Shaheed's office tomorrow. Historical: - Allergies: 13:20 No Known Allergies; aj - Immunization history:: Adult Immunizations up to date. - Social history:: Smoking status: Patient/guardian denies using tobacco. - Ebola Screening: : Patient negative for fever greater than or equal to 101.5 degrees Fahrenheit, and additional compatible Ebola Virus Disease symptoms Patient denies exposure to infectious person Patient denies travel to an Ebola-affected area in the 21 days before illness onset. ROS: 13:44 Constitutional: Negative for fever, chills, and weight loss, Cardiovascular: Negative kb for chest pain, palpitations, and edema, Respiratory: Negative for shortness of breath, cough, wheezing, and pleuritic chest pain, Abdomen/GI: Negative for abdominal pain, nausea, vomiting, diarrhea, and constipation, : Negative for injury, bleeding, discharge, and swelling, MS/Extremity: Negative for injury and deformity, Skin: Negative for injury, rash, and discoloration, Neuro: Negative for headache, weakness, numbness, tingling, and seizure. 13:44 Back: Positive for pain at rest, pain with movement. Exam: 13:44 Constitutional: This is a well developed, well nourished patient who is awake, alert, kb and in no acute distress. Head/Face: Normocephalic, atraumatic. ENT: Nares patent. No nasal discharge, no septal abnormalities noted. Tympanic membranes are normal and external auditory canals are clear. Oropharynx with no redness, swelling, or masses, exudates, or evidence of obstruction, uvula midline. Mucous membranes moist. Neck: Trachea midline, no thyromegaly or masses palpated, and no cervical lymphadenopathy. Supple, full range of motion without nuchal rigidity, or vertebral point tenderness. No Meningismus. Chest/axilla: Normal chest wall appearance and motion. Nontender with no deformity. No lesions are appreciated. Cardiovascular: Regular rate and rhythm with a normal S1 and S2. No gallops, murmurs, or rubs. Normal PMI, no JVD. No pulse deficits. Respiratory: Lungs have equal breath sounds bilaterally, clear to auscultation and percussion. No rales, rhonchi or wheezes noted. No increased work of breathing, no retractions or nasal flaring. Abdomen/GI: Soft, non-tender, with normal bowel sounds. No distension or tympany. No guarding or rebound. No evidence of tenderness throughout. Back: No spinal tenderness. No costovertebral tenderness. Full range of motion. Skin: Warm, dry with normal turgor. Normal color with no rashes, no lesions, and no evidence of cellulitis. MS/ Extremity: Pulses equal, no cyanosis. Neurovascular intact. Full, normal range of motion. Neuro: Awake and alert, GCS 15, oriented to person, place, time, and situation. Cranial nerves II-XII grossly intact. Motor strength 5/5 in all extremities. Sensory grossly intact. Cerebellar exam normal. Normal gait. Vital Signs: 13:20 BP 126 / 81; Pulse 86; Resp 19; Temp 97.6; Pulse Ox 97% on R/A; Weight 145.15 kg; aj Height 6 ft. 1 in. (185.42 cm); 13:20 Body Mass Index 42.22 (145.15 kg, 185.42 cm) aj MDM: 13:29 Patient medically screened. kb 13:46 Data reviewed: vital signs, nurses notes. Data interpreted: Pulse oximetry: on room air kb is 97 %. Interpretation: normal. Counseling: I had a detailed discussion with the patient and/or guardian regarding: the historical points, exam findings, and any diagnostic results supporting the discharge/admit diagnosis, radiology results, the need for outpatient follow up, a orthopedic surgeon, to return to the emergency department if symptoms worsen or persist or if there are any questions or concerns that arise at home. Administered Medications: 13:41 Drug: Zofran 4 mg Route: PO; ca1 14:05 Follow up: Response: No adverse reaction; Pain is decreased ca1 13:47 Drug: Demerol 50 mg Route: IM; Site: right gluteus; ca1 14:05 Follow up: Response: No adverse reaction; Pain is decreased ca1 Disposition: 17:19 Co-signature as Attending Physician, Bryn Herbert MD I agree with the assessment and kdr plan of care. Disposition: 08/15/18 13:48 Discharged to Home. Impression: Pain in right hip. - Condition is Stable. - Discharge Instructions: Musculoskeletal Pain, Hip Pain. - Prescriptions for Tramadol 50 mg Oral Tablet - take 1 tablet by ORAL route every 8 hours as needed; 12 tablet. - Medication Reconciliation Form, Thank You Letter, Antibiotic Education, Prescription Opioid Use form. - Follow up: Emergency Department; When: As needed; Reason: Worsening of condition. Follow up: Asher Hummel MD; When: Tomorrow; Reason: Recheck today's complaints. Signatures: Ronda Wise, FARM HELPER-C FARM HELPER-Brianna Murillo, ARANZA RN Bryn Rabago MD MD [facility] Josephine Bustamante RN RN ca1 Corrections: (The following items were deleted from the chart) 13:45 13:42 The patient has not recently seen a physician, kb kb 13:45 13:42 The patient has not experienced similar symptoms in the past, kb kb 14:06 13:48 08/15/2018 13:48 Discharged to Home. Impression: Pain in right hip. Condition is ca1 Stable. Forms are Medication Reconciliation Form, Thank You Letter, Antibiotic Education, Prescription Opioid Use. Follow up: Emergency Department; When: As needed; Reason: Worsening of condition. Follow up: Asher Hummel; When: Tomorrow; Reason: Recheck today's complaints. kb
--- NOTE | 2018-08-15 13:49 | ER ---
Nurse's Notes [facility] Name: Jose Antonio Summers Age: 53 yrs Sex: Male : 1965 Arrival Date: 08/15/2018 Time: 13:20 Bed 28 Private MD: Diagnosis: Pain in right hip Presentation: 08/15 13:20 Presenting complaint: Patient states: Right posterior hip pain that shoots down leg to aj toes. Patient seen in this ER for same complaint several times before. Care prior to arrival: None. 13:20 Method Of Arrival: Wheelchair aj 13:20 Acuity: SANKET 4 aj 13:49 Transition of care: patient was not received from another setting of care. Onset of ca1 symptoms was August 15, 2018. Risk Assessment: Do you want to hurt yourself or someone else? Patient reports no desire to harm self or others. Initial Sepsis Screen: Does the patient meet any 2 criteria? No. Patient's initial sepsis screen is negative. Does the patient have a suspected source of infection? No. Patient's initial sepsis screen is negative. Triage Assessment: 13:20 General: Appears in no apparent distress. comfortable, Behavior is calm, cooperative, aj appropriate for age. Pain: Complains of pain in coccyx, right lower back, right gluteus penny and right gluteal fold. Neuro: Level of Consciousness is awake, alert, obeys commands, Oriented to person, place, time, situation, Appropriate for age. Musculoskeletal: Range of motion: intact in all extremities, Reports pain in coccyx, right lower back, right gluteus penny and right gluteal fold. Historical: - Allergies: 13:20 No Known Allergies; aj - Immunization history:: Adult Immunizations up to date. - Social history:: Smoking status: Patient/guardian denies using tobacco. - Ebola Screening: : Patient negative for fever greater than or equal to 101.5 degrees Fahrenheit, and additional compatible Ebola Virus Disease symptoms Patient denies exposure to infectious person Patient denies travel to an Ebola-affected area in the 21 days before illness onset. Screenin:47 Abuse screen: Denies threats or abuse. Denies injuries from another. Nutritional ca1 screening: No deficits noted. Tuberculosis screening: No symptoms or risk factors identified. Fall Risk None identified. Assessment: 13:47 General: Appears in no apparent distress. comfortable, Behavior is calm, cooperative, ca1 appropriate for age. Pain: Complains of pain in pelvis and right hip and right leg and buttocks and right gluteal fold and right gluteus penny and right lower back and coccyx Pain currently is 8 out of 10 on a pain scale. Neuro: Level of Consciousness is awake, alert, obeys commands, Oriented to person, place, time, situation, Appropriate for age. Cardiovascular: Heart tones S1 S2 present Capillary refill < 3 seconds Patient's skin is warm and dry. Respiratory: Airway is patent Respiratory effort is even, unlabored, Respiratory pattern is regular, symmetrical, Breath sounds are clear bilaterally. GI: Abdomen is round non-distended, Bowel sounds present X 4 quads. Abd is soft and non tender X 4 quads. : No deficits noted. No signs and/or symptoms were reported regarding the genitourinary system. EENT: No deficits noted. No signs and/or symptoms were reported regarding the EENT system. Derm: Skin is intact, is healthy with good turgor, Skin is pink, warm \T\ dry. Musculoskeletal: Circulation, motion, and sensation intact. Capillary refill < 3 seconds, Range of motion: intact in all extremities. 14:04 Reassessment: Patient appears in no apparent distress at this time. Patient is alert, ca1 oriented x 3, equal unlabored respirations, skin warm/dry/pink. Patient states feeling better. 14:05 Reassessment: Pt wheeled to the lobby, waiting for friend to pick him up. ca1 Vital Signs: 13:20 BP 126 / 81; Pulse 86; Resp 19; Temp 97.6; Pulse Ox 97% on R/A; Weight 145.15 kg; aj Height 6 ft. 1 in. (185.42 cm); 13:20 Body Mass Index 42.22 (145.15 kg, 185.42 cm) aj ED Course: 13:20 Patient arrived in ED. aj 13:20 Triage completed. aj 13:20 Arm band placed on right wrist. Patient placed in an exam room. aj 13:28 Ronda Wise FNP-C [facility]. kb 13:28 Bryn Herbert MD is Attending Physician. kb 13:32 Josephine Bustamante RN is Primary Nurse. ca1 13:46 Asher Hummel MD is Referral Physician. kb 13:47 Patient has correct armband on for positive identification. Bed in low position. Call ca1 light in reach. Side rails up X 1. Pulse ox on. NIBP on. 13:47 No provider procedures requiring assistance completed. Patient did not have IV access ca1 during this emergency room visit. Administered Medications: 13:41 Drug: Zofran 4 mg Route: PO; ca1 14:05 Follow up: Response: No adverse reaction; Pain is decreased ca1 13:47 Drug: Demerol 50 mg Route: IM; Site: right gluteus; ca1 14:05 Follow up: Response: No adverse reaction; Pain is decreased ca1 Outcome: 13:48 Discharge ordered by . kb 14:05 Discharged to home via wheelchair. ca1 14:05 Condition: stable 14:05 Discharge instructions given to patient, Instructed on discharge instructions, follow up and referral plans. medication usage, Demonstrated understanding of instructions, follow-up care, medications, Prescriptions given X 1. 14:06 Patient left the ED. ca1 Signatures: Ronda Wise, TENISHA-Lola STEVEN-Brianna Murillo, RN RN Josephine Mejia RN RN ca1
[2018-08-15] MEDS ORDERED: MEPERIDINE HCL 50 MG/ML AMP ONE (13:57)
[2018-08-15] MEDS ORDERED: ONDANSETRON 4 MG (ODT) TAB ONE ×2 (13:57→13:59)
== END 2018-08-15 14:06 | disposition home or self-care (01) ==
LOC: ER 13:14
DX: M25.551 Pain in right hip (principal)
CPT/HCPCS: 96372; 99283; J2175

== ENCOUNTER 2018-08-17 16:12 | Emergency (ER) | payer BC ==
--- NOTE | 2018-08-17 18:12 | ER ---
Nurse's Notes [facility] Name: Jose Antonio Summers Age: 53 yrs Sex: Male : 1965 Arrival Date: 08/17/2018 Time: 16:14 Bed 28 Private MD: Edouard Salgado E Diagnosis: Pain in right leg;Sciatica, right side;Pain in right hip Presentation: 08/17 16:20 Presenting complaint: Patient states: R groin pain that radiates towards R knee and R ss ankle x 2 weeks. Pt was seen in ER recently, - for blood clots, and seen by ortho (Dr. Hummel) yesterday, and was told it is not an ortho problem as his joints look good. Transition of care: patient was not received from another setting of care. Onset of symptoms is unknown. Risk Assessment: Do you want to hurt yourself or someone else? Patient reports no desire to harm self or others. Initial Sepsis Screen: Does the patient meet any 2 criteria? No. Patient's initial sepsis screen is negative. Does the patient have a suspected source of infection? No. Patient's initial sepsis screen is negative. Care prior to arrival: None. 16:20 Method Of Arrival: Ambulatory ss 16:20 Acuity: SANKET 4 ss Historical: - Allergies: 16:22 No Known Allergies; ss - PMHx: 16:22 Hypertension; Diabetes; Acromegaly; ss - Immunization history:: Adult Immunizations unknown. - Social history:: Smoking status: Patient/guardian denies using tobacco. - Ebola Screening: : Patient denies exposure to infectious person Patient denies travel to an Ebola-affected area in the 21 days before illness onset. Screenin:53 Abuse screen: Denies threats or abuse. Denies injuries from another. Nutritional rv screening: No deficits noted. Tuberculosis screening: No symptoms or risk factors identified. Fall Risk None identified. Assessment: 17:30 General: Appears in no apparent distress. uncomfortable, Behavior is calm, cooperative. rv 17:30 Pain: Complains of pain in right leg. Pain: Pain currently is 7 out of 10 on a pain rv scale. Neuro: Level of Consciousness is awake, alert, obeys commands, Oriented to person, place, time, situation. Cardiovascular: Patient's skin is warm and dry. Respiratory: Airway is patent. GI: No signs and/or symptoms were reported involving the gastrointestinal system. : No signs and/or symptoms were reported regarding the genitourinary system. EENT: No signs and/or symptoms were reported regarding the EENT system. Derm: Skin is intact. Musculoskeletal: No signs and/or symptoms reported regarding the musculoskeletal system. Vital Signs: 16:22 BP 152 / 84; Pulse 71; Resp 18; Temp 97.2(TE); Pulse Ox 95% on R/A; Weight 145.15 kg; ss Height 6 ft. 1 in. (185.42 cm); Pain 10/10; 17:49 BP 136 / 91; Pulse 64; Resp 17; Pulse Ox 96% ; Pain 2/10; rv 17:53 Pain 2/10; rv 17:53 Pain 2/10; rv 16:22 Body Mass Index 42.22 (145.15 kg, 185.42 cm) ED Course: 16:14 Patient arrived in ED. as 16:14 Edouard Salgado MD is Private Physician. as 16:21 Triage completed. ss 16:22 Arm band placed on right wrist. ss 16:44 Yovani Calderon, BENJAMIN is PHCP. pm1 16:44 Bernard Oneal MD is Attending Physician. pm1 17:13 Ant Giron RN is Primary Nurse. rv 17:53 Patient has correct armband on for positive identification. Placed in gown. Bed in low rv position. Call light in reach. Pulse ox on. NIBP on. 19:10 No provider procedures requiring assistance completed. Patient did not have IV access rv during this emergency room visit. Administered Medications: 17:22 Drug: morphine 4 mg Route: IM; Site: right deltoid; rv 17:53 Follow up: Pain 2/10 Adult; Response: Marked relief of symptoms; Pain is decreased rv 17:22 Drug: Decadron 10 mg Route: IM; Site: left deltoid; rv 17:53 Follow up: Pain 2/10 Adult; Response: Marked relief of symptoms; Pain is decreased rv Outcome: 18:11 Discharge ordered by . pm1 18:23 Patient left the ED. iw 19:10 Discharged to home ambulatory. rv 19:10 Condition: good 19:10 Discharge instructions given to patient, Instructed on discharge instructions, follow up and referral plans. medication usage, Demonstrated understanding of instructions, follow-up care, medications, Prescriptions given X 1. Signatures: Amina Spencer Irene, RN RN iw Maryan Babb RN RN ss Yovani Calderon, BENJAMIN W[employer] DESIGN ENGINEER pm1 Ant Giron RN RN rv Corrections: (The following items were deleted from the chart) 17:54 17:49 BP 136 / 91; Pulse 64bpm; Resp 17bpm; Pulse Ox 96%; rv rv
--- NOTE | 2018-08-17 18:12 | EDPHYS ---
Physician Documentation [facility] Name: Jose Antonio Summers Age: 53 yrs Sex: Male : 1965 Arrival Date: 08/17/2018 Time: 16:14 Bed 28 Private MD: Edouard Salgado E ED Physician Bernard Oneal HPI: 08/17 17:26 This 53 yrs old Male presents to ER via Ambulatory with complaints of Right pm1 leg pain. 17:26 The patient presents with pain. The complaints affect the right leg. Context: The pm1 problem was sustained at home, resulted from an unknown cause, the patient can fully bear weight, the patient is able to ambulate, Problem is a result from a previous injury: No. Onset: The symptoms/episode began/occurred 1 month(s) ago. Modifying factors: The symptoms are alleviated by pain medications. the symptoms are aggravated by movement, weight bearing. Associated signs and symptoms: Pertinent negatives calf tenderness, numbness, swelling, tingling, warmth, weakness. Severity of symptoms: in the emergency department the symptoms are unchanged. The patient has been recently seen by a physician: Dr. Hummel yesterday and referred to neurosurgery/pain management. 17:26 The patient has experienced similar episodes in the past, and the symptoms today are pm1 exactly the same, Patient has been seen here 4 times since 07/26/2018 for the same complaints. Patient was discharged home for follow up with specialist. Patient wants pain medications in the ER today and plans to follow up with neurosurgery and pain management as recommended by Dr. Hummel. Historical: - Allergies: 16:22 No Known Allergies; ss - PMHx: 16:22 Hypertension; Diabetes; Acromegaly; ss - Immunization history:: Adult Immunizations unknown. - Social history:: Smoking status: Patient/guardian denies using tobacco. - Ebola Screening: : Patient denies exposure to infectious person Patient denies travel to an Ebola-affected area in the 21 days before illness onset. ROS: 17:26 Constitutional: Negative for fever, chills, and weight loss, Eyes: Negative for injury, pm1 pain, redness, and discharge, ENT: Negative for injury, pain, and discharge, Neck: Negative for injury, pain, and swelling, Cardiovascular: Negative for chest pain, palpitations, and edema, Respiratory: Negative for shortness of breath, cough, wheezing, and pleuritic chest pain, Abdomen/GI: Negative for abdominal pain, nausea, vomiting, diarrhea, and constipation, Back: Negative for injury and pain, : Negative for injury, bleeding, discharge, and swelling. 17:26 Skin: Negative for injury, rash, and discoloration, Neuro: Negative for headache, weakness, numbness, tingling, and seizure. 17:26 MS/extremity: Positive for pain, of the right hip, lateral aspect of right knee and right ankle, Negative for decreased range of motion, deformity, swelling. Exam: 17:26 Constitutional: This is a well developed, well nourished patient who is awake, alert, pm1 and in no acute distress. Head/Face: Normocephalic, atraumatic. Eyes: Pupils equal round and reactive to light, extra-ocular motions intact. Lids and lashes normal. Conjunctiva and sclera are non-icteric and not injected. Cornea within normal limits. Periorbital areas with no swelling, redness, or edema. ENT: Nares patent. No nasal discharge, no septal abnormalities noted. Tympanic membranes are normal and external auditory canals are clear. Oropharynx with no redness, swelling, or masses, exudates, or evidence of obstruction, uvula midline. Mucous membranes moist. Neck: Trachea midline, no thyromegaly or masses palpated, and no cervical lymphadenopathy. Supple, full range of motion without nuchal rigidity, or vertebral point tenderness. No Meningismus. Chest/axilla: Normal chest wall appearance and motion. Nontender with no deformity. No lesions are appreciated. Cardiovascular: Regular rate and rhythm with a normal S1 and S2. No gallops, murmurs, or rubs. Normal PMI, no JVD. No pulse deficits. Respiratory: Lungs have equal breath sounds bilaterally, clear to auscultation and percussion. No rales, rhonchi or wheezes noted. No increased work of breathing, no retractions or nasal flaring. Abdomen/GI: Soft, non-tender, with normal bowel sounds. No distension or tympany. No guarding or rebound. No evidence of tenderness throughout. Back: No spinal tenderness. No costovertebral tenderness. Full range of motion. Skin: Warm, dry with normal turgor. Normal color with no rashes, no lesions, and no evidence of cellulitis. MS/ Extremity: Pulses equal, no cyanosis. Neurovascular intact. Full, normal range of motion. 17:26 Neuro: Orientation: is normal, Motor: is normal, moves all fours, Sensation: is normal, no obvious gross deficits. Vital Signs: 16:22 BP 152 / 84; Pulse 71; Resp 18; Temp 97.2(TE); Pulse Ox 95% on R/A; Weight 145.15 kg; ss Height 6 ft. 1 in. (185.42 cm); Pain 10/10; 17:49 BP 136 / 91; Pulse 64; Resp 17; Pulse Ox 96% ; Pain 2/10; rv 17:53 Pain 2/10; rv 17:53 Pain 2/10; rv 16:22 Body Mass Index 42.22 (145.15 kg, 185.42 cm) ss MDM: 17:09 Patient medically screened. pm1 18:09 Data reviewed: vital signs. Data interpreted: Pulse oximetry: on room air is 96 %. pm1 Interpretation: normal. 18:09 Medication response: Pain 2/10 with medications given in the ER. 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 Administered Medications: 17:22 Drug: morphine 4 mg Route: IM; Site: right deltoid; rv 17:53 Follow up: Pain 2/10 Adult; Response: Marked relief of symptoms; Pain is decreased rv 17:22 Drug: Decadron 10 mg Route: IM; Site: left deltoid; rv 17:53 Follow up: Pain 2/10 Adult; Response: Marked relief of symptoms; Pain is decreased rv Disposition: 08/17/18 18:11 Discharged to Home. Impression: Sciatica, right side, Pain in right leg, Pain in right hip. - Condition is Stable. - Discharge Instructions: Musculoskeletal Pain, Sciatica, Hip Pain. - Prescriptions for Tramadol 50 mg Oral Tablet - take 1 tablet by ORAL route every 8 hours as needed; 12 tablet. - Medication Reconciliation Form, Thank You Letter, Antibiotic Education, Prescription Opioid Use form. - Follow up: Emergency Department; When: As needed; Reason: Worsening of condition. Follow up: Private Physician; When: 2 - 3 days; Reason: Recheck today's complaints, Continuance of care, Re-evaluation by your physician. - Problem is new. - Symptoms have improved. Addendum: 08/19/2018 04:09 Co-signature as Attending Physician, Bernard Oneal MD. g s Signatures: Alethea Sullivan RN RN Maryan Babb RN RN ss Yovani Calderon, INSULATION PROFESSIONAL INSULATION PROFESSIONAL pm1 Bernard Oneal MD MD Ant Giron RN RN rv Corrections: (The following items were deleted from the chart) 08/17 18:12 18:11 08/17/2018 18:11 Discharged to Home. Impression: Pain in right leg. Condition is pm1 Stable. Forms are Medication Reconciliation Form, Thank You Letter, Antibiotic Education, Prescription Opioid Use. Follow up: Emergency Department; When: As needed; Reason: Worsening of condition. Follow up: Private Physician; When: 2 - 3 days; Reason: Recheck today's complaints, Continuance of care, Re-evaluation by your physician. Problem is new. Symptoms have improved. pm1 18:23 18:12 08/17/2018 18:11 Discharged to Home. Impression: Sciatica, right sidePain in iw right leg; Pain in right hip. Condition is Stable. Forms are Medication Reconciliation Form, Thank You Letter, Antibiotic Education, Prescription Opioid Use. Follow up: Emergency Department; When: As needed; Reason: Worsening of condition. Follow up: Private Physician; When: 2 - 3 days; Reason: Recheck today's complaints, Continuance of care, Re-evaluation by your physician. Problem is new. Symptoms have improved. pm1
== END 2018-08-17 18:23 | disposition home or self-care (01) ==
LOC: ER 16:12
DX: M54.31 Sciatica, right side (principal); M25.551 Pain in right hip; I10 Essential (primary) hypertension
CPT/HCPCS: 96372; 99283

== ENCOUNTER 2018-09-20 19:45 | Emergency (ER) | payer BC ==
[2018-09-20] MEDS ORDERED: KETOROLAC 30 MG/ML INJ ONE (20:28)
[2018-09-20] MEDS ORDERED: ONDANSETRON 4 MG/2 ML VIAL ONE (20:29)
[2018-09-20 20:40] LABS: Absolute Lymphocytes (CBC) 1.5 K/uL (0.7-4.9); Basophils % 0.5 % (0-1.3); Hematocrit 48.1 % (39.6-49.0); Lymphocytes % 19.2 % (15.3-44.8); MPV 9.2 fL (7.6-11.3); RBC Red Blood Cell Count 5.07 M/uL (4.33-5.43)
[2018-09-20 20:58] LABS: Albumin 3.8 g/dL (3.4-5.0); Bilirubin Direct 0.2 mg/dL (0-0.2); Bilirubin Total 0.8 mg/dL (0.2-1.0); Potassium 3.8 mmol/L (3.5-5.1); Protein, Total 7.8 g/dL (6.4-8.2)
[2018-09-20 20:59] LABS: Urine Blood NEGATIVE (NEG); Urine Glucose NEGATIVE (NEG); Urine Protein TRACE (NEG)
[2018-09-20 21:03] LABS: Urine Bacteria <20 /HPF (NONE SEEN); Urine Culture Reflex Order NOT NEEDED; Urine RBC NONE SEEN /HPF (NONE SEEN)
[2018-09-20 21:16] LABS: Blood Morphology Comment NOT SEEN (NOT SEEN); Platelet Estimate ADEQ
[2018-09-20] MEDS ORDERED: CEFTRIAXONE/SWI 1gm 1 GM/10 ML SYR ONE (22:57)
--- NOTE | 2018-09-20 23:10 | EDPHYS ---
Physician Documentation [facility] Name: Jose Antonio Summers Age: 53 yrs Sex: Male : 1965 Arrival Date: 09/20/2018 Time: 19:47 Bed 5 Private MD: ED Physician Edouard Vera HPI: 09/20 23:03 This 53 yrs old Male presents to ER via Ambulatory with complaints of Bloated.wa 23:03 The patient presents with abdominal pain that is diffuse. Onset: The symptoms/episode wa began/occurred 3 day(s) ago. The symptoms do not radiate. Associated signs and symptoms: Pertinent positives: nausea, Pertinent negatives: fever, shortness of breath, vomiting. The symptoms are described as achy. Modifying factors: The symptoms are alleviated by nothing, the symptoms are aggravated by nothing. Severity of pain: At its worst the pain was moderate in the emergency department the pain has improved. The patient has not experienced similar symptoms in the past. The patient has not recently seen a physician. abd pain. diffuse. feels bloated. Historical: - Allergies: 19:52 No Known Allergies; aj1 - PMHx: 19:52 acromegaly; Diabetes; Hypertension; aj1 - PSHx: 19:52 pituitary gland removed; Hernia repair; Appendectomy; aj1 - Immunization history:: Flu vaccine status is unknown. - Social history:: Smoking status: Patient/guardian denies using tobacco. - Ebola Screening: : Patient denies travel to an Ebola-affected area in the 21 days before illness onset. - Family history:: not pertinent. - Hospitalizations: : No recent hospitalization is reported. ROS: 23:05 Constitutional: Negative for fever, chills, and weight loss, Eyes: Negative for injury, wa pain, redness, and discharge, ENT: Negative for injury, pain, and discharge, Neck: Negative for injury, pain, and swelling, Cardiovascular: Negative for chest pain, palpitations, and edema, Respiratory: Negative for shortness of breath, cough, wheezing, and pleuritic chest pain, Back: Negative for injury and pain, : Negative for injury, bleeding, discharge, and swelling, MS/Extremity: Negative for injury and deformity, Skin: Negative for injury, rash, and discoloration, Neuro: Negative for headache, weakness, numbness, tingling, and seizure, Psych: Negative for depression, anxiety, suicide ideation, homicidal ideation, and hallucinations. 23:05 Abdomen/GI: Positive for abdominal pain, nausea. Exam: 23:06 Constitutional: This is a well developed, well nourished patient who is awake, alert, wa and in no acute distress. Head/Face: Normocephalic, atraumatic. Eyes: Pupils equal round and reactive to light, extra-ocular motions intact. Lids and lashes normal. Conjunctiva and sclera are non-icteric and not injected. Cornea within normal limits. Periorbital areas with no swelling, redness, or edema. ENT: Nares patent. No nasal discharge, no septal abnormalities noted. Tympanic membranes are normal and external auditory canals are clear. Oropharynx with no redness, swelling, or masses, exudates, or evidence of obstruction, uvula midline. Mucous membranes moist. Neck: Trachea midline, no thyromegaly or masses palpated, and no cervical lymphadenopathy. Supple, full range of motion without nuchal rigidity, or vertebral point tenderness. No Meningismus. Chest/axilla: Normal chest wall appearance and motion. Nontender with no deformity. No lesions are appreciated. Cardiovascular: Regular rate and rhythm with a normal S1 and S2. No gallops, murmurs, or rubs. Normal PMI, no JVD. No pulse deficits. Respiratory: Lungs have equal breath sounds bilaterally, clear to auscultation and percussion. No rales, rhonchi or wheezes noted. No increased work of breathing, no retractions or nasal flaring. Back: No spinal tenderness. No costovertebral tenderness. Full range of motion. Skin: Warm, dry with normal turgor. Normal color with no rashes, no lesions, and no evidence of cellulitis. MS/ Extremity: Pulses equal, no cyanosis. Neurovascular intact. Full, normal range of motion. Neuro: Awake and alert, GCS 15, oriented to person, place, time, and situation. Cranial nerves II-XII grossly intact. Motor strength 5/5 in all extremities. Sensory grossly intact. Cerebellar exam normal. Normal gait. Psych: Awake, alert, with orientation to person, place and time. Behavior, mood, and affect are within normal limits. 23:06 Abdomen/GI: Inspection: abdomen appears normal, Bowel sounds: normal, Palpation: abdomen is soft and non-tender, in all quadrants. Vital Signs: 19:52 BP 163 / 86; Pulse 86; Resp 18; Temp 97.7(O); Pulse Ox 96% on R/A; Weight 145.15 kg aj1 (R); Height 6 ft. 1 in. (185.42 cm) (R); Pain 8/10; 21:19 Pulse 88; Resp 18; Temp 97.8; Pulse Ox 94% on R/A; ak1 21:31 BP 124 / 94; Pulse 79; Resp 18; ak1 22:52 BP 149 / 85; Pulse 79; Resp 18; Temp 98.0(TE); Pulse Ox 94% on R/A; Pain 0/10; ak1 19:52 Body Mass Index 42.22 (145.15 kg, 185.42 cm) [facility] MDM: 19:56 Patient medically screened. nh 23:06 Differential diagnosis: cholecystitis, Cholelithiasis, diverticulitis, gastritis, wa non-specific abd pain, pancreatitis, Ureterolithiasis, urinary tract infection. Data reviewed: vital signs, nurses notes. 23:07 Test interpretation: by ED physician or midlevel provider: labs noted for renal wa insufficiency. CT noted for fatty liver. gallstones. enteritis vs duodenitis. Response to treatment: the patient's symptoms have markedly improved after treatment. ED course: rocephin given. will d/c with abx and close f/u with GI. 09/20 20:12 Order name: Basic Metabolic Panel; Complete Time: 21:42 nh 09/20 20:12 Order name: CBC with Diff; Complete Time: 21:42 nh 09/20 20:12 Order name: Hepatic Function; Complete Time: 21:42 nh 09/20 20:12 Order name: Lipase; Complete Time: 21:43 nh 09/20 20:12 Order name: Urine Microscopic Only; Complete Time: 21:43 nh 09/20 20:45 Order name: Manual Differential; Complete Time: 21:42 EDNC 09/20 20:12 Order name: IV Saline Lock; Complete Time: 20:33 nh 09/20 20:12 Order name: Labs collected and sent; Complete Time: 20:33 nh 09/20 20:48 Order name: Urine Dipstick--Ancillary (enter results); Complete Time: 21:42 2 09/20 21:22 Order name: Abdomen EDMS 09/20 20:12 Order name: Urine Dipstick-Ancillary (obtain specimen); Complete Time: 20:43 wa Administered Medications: 20:43 Drug: Zofran 4 mg Route: IVP; Site: right antecubital; ak1 21:55 Follow up: Response: No adverse reaction ak1 20:44 Drug: TORadol 30 mg Route: IVP; Site: right antecubital; ak1 21:55 Follow up: Response: No adverse reaction ak1 23:00 Drug: Rocephin - (cefTRIAXone) 1 grams Route: IVPB; Infused Over: 30 mins; Site: right ak1 antecubital; 23:33 Follow up: IV Status: Completed infusion; IV Intake: 10ml ak1 Disposition: 09/20/18 23:10 Discharged to Home. Impression: acute abdominal pain, Duodenitis, enteritis. - Condition is Stable. - Prescriptions for Zofran 4 mg Oral Tablet - take 1 tablet by ORAL route every 12 hours As needed; 20 tablet. Pepcid 20 mg Oral Tablet - take 1 tablet by ORAL route once daily for 10 days; 10 tablet. Cipro 500 mg Oral Tablet - take 1 tablet by ORAL route every 12 hours for 7 days; 14 tablet. Flagyl 500 mg Oral Tablet - take 1 tablet by ORAL route every 12 hours for 7 days; 14 tablet. Tramadol 50 mg Oral Tablet - take 1 tablet by ORAL route every 8 hours as needed; 12 tablet. - Medication Reconciliation Form, Thank You Letter, Antibiotic Education, Prescription Opioid Use form. - Follow up: Edouard Boswell MD; When: 2 - 3 days; Reason: Re-evaluation by your physician. - Problem is new. - Symptoms have improved. - Notes: follow up with the abdomen doctor for further evaluation. return here immediately for rapidly worsening concerns Signatures: Dispatcher [employer] EDMS Angelica Stout RN RN aj1 Randi Jacobsen RN RN ak1 Edouard Vera MD MD wa Corrections: (The following items were deleted from the chart) 21:22 20:13 Abdomen Pelvis W Con+CT.RAD.BRZ ordered. EDNC EDNC 23:31 23:10 09/20/2018 23:10 Discharged to Home. Impression: acute abdominal pain; ak1 Duodenitis; enteritis. Condition is Stable. Forms are Medication Reconciliation Form, Thank You Letter, Antibiotic Education, Prescription Opioid Use. Follow up: Edouard Boswell; When: 2 - 3 days; Reason: Re-evaluation by your physician. Problem is new. Symptoms have improved. shad
--- NOTE | 2018-09-20 23:10 | ER ---
Nurse's Notes [facility] Name: Jose Antonio Summers Age: 53 yrs Sex: Male : 1965 Arrival Date: 09/20/2018 Time: 19:47 Bed 5 Private MD: Diagnosis: acute abdominal pain;Duodenitis;enteritis Presentation: 09/20 19:50 Presenting complaint: Patient states: "Im bloated, that has been going on for a while aj1 but its gotten worse and worse. I took Pepto Bismol and Gas X, the Gas X took it down some, but it didn't go away, and now its back again" Reports RLQ and LLQ abd pain. Reports nausea. Denies V/D. Denies fever. Transition of care: patient was not received from another setting of care. Onset of symptoms was September 20, 2018. Risk Assessment: Do you want to hurt yourself or someone else? Patient reports no desire to harm self or others. Initial Sepsis Screen: Does the patient meet any 2 criteria? No. Patient's initial sepsis screen is negative. Does the patient have a suspected source of infection? No. Patient's initial sepsis screen is negative. Care prior to arrival: None. 19:50 Method Of Arrival: Ambulatory aj1 19:50 Acuity: SANKET 3 aj1 Triage Assessment: 19:52 General: Appears in no apparent distress. comfortable, Behavior is calm, cooperative, aj1 appropriate for age. Pain: Complains of pain in right lower quadrant and left lower quadrant Pain currently is 8 out of 10 on a pain scale. Neuro: Level of Consciousness is awake, alert, obeys commands. Cardiovascular: Patient's skin is warm and dry. Respiratory: Airway is patent Respiratory effort is even, unlabored, Respiratory pattern is regular, symmetrical. GI: Reports lower abdominal pain, bloating. Historical: - Allergies: 19:52 No Known Allergies; aj1 - PMHx: 19:52 acromegaly; Diabetes; Hypertension; aj1 - PSHx: 19:52 pituitary gland removed; Hernia repair; Appendectomy; aj1 - Immunization history:: Flu vaccine status is unknown. - Social history:: Smoking status: Patient/guardian denies using tobacco. - Ebola Screening: : Patient denies travel to an Ebola-affected area in the 21 days before illness onset. - Family history:: not pertinent. - Hospitalizations: : No recent hospitalization is reported. Screenin:33 Abuse screen: Denies threats or abuse. Denies injuries from another. Nutritional ak1 screening: No deficits noted. Tuberculosis screening: No symptoms or risk factors identified. Fall Risk None identified. Assessment: 20:33 General: Appears in no apparent distress. uncomfortable, well groomed, Behavior is ak1 calm, cooperative. Pain: Complains of pain in left lower quadrant and right lower quadrant. Neuro: No deficits noted. Cardiovascular: No deficits noted. Respiratory: No deficits noted. GI: Abdomen is round non-distended, Bowel sounds present X 4 quads. Abd is soft Abdomen is tender to palpation in left lower quadrant and right lower quadrant. : No signs and/or symptoms were reported regarding the genitourinary system. EENT: No signs and/or symptoms were reported regarding the EENT system. Derm: No signs and/or symptoms reported regarding the dermatologic system. Musculoskeletal: No signs and/or symptoms reported regarding the musculoskeletal system. Vital Signs: 19:52 BP 163 / 86; Pulse 86; Resp 18; Temp 97.7(O); Pulse Ox 96% on R/A; Weight 145.15 kg aj1 (R); Height 6 ft. 1 in. (185.42 cm) (R); Pain 8/10; 21:19 Pulse 88; Resp 18; Temp 97.8; Pulse Ox 94% on R/A; ak1 21:31 BP 124 / 94; Pulse 79; Resp 18; ak1 22:52 BP 149 / 85; Pulse 79; Resp 18; Temp 98.0(TE); Pulse Ox 94% on R/A; Pain 0/10; ak1 19:52 Body Mass Index 42.22 (145.15 kg, 185.42 cm) aj1 ED Course: 19:47 Patient arrived in ED. ds1 19:51 Triage completed. aj1 19:52 Arm band placed on Patient placed in an exam room. aj1 19:56 Edouard Vera MD is Attending Physician. wa 20:13 Radiology exam delayed due to lab results not completed at this time. (BUN/Creatinine). vm2 20:17 Randi Jacobsen, RN is Primary Nurse. ak1 20:33 Patient has correct armband on for positive identification. Bed in low position. Call ak1 light in reach. Side rails up X 1. Pulse ox on. NIBP on. 20:33 Initial lab(s) drawn, by me, sent to lab. Inserted saline lock: 20 gauge in right ak1 antecubital area, using aseptic technique. Blood collected. 20:54 Radiology exam delayed due to lab results not completed at this time. (BUN/Creatinine). luigi 21:51 Abdomen In Process Unspecified. EDMS 23:09 Edouard Boswell MD is Referral Physician. wa 23:27 No provider procedures requiring assistance completed. IV discontinued, intact, ak1 bleeding controlled, No redness/swelling at site. Pressure dressing applied. Administered Medications: 20:43 Drug: Zofran 4 mg Route: IVP; Site: right antecubital; ak1 21:55 Follow up: Response: No adverse reaction ak1 20:44 Drug: TORadol 30 mg Route: IVP; Site: right antecubital; ak1 21:55 Follow up: Response: No adverse reaction ak1 23:00 Drug: Rocephin - (cefTRIAXone) 1 grams Route: IVPB; Infused Over: 30 mins; Site: right ak1 antecubital; 23:33 Follow up: IV Status: Completed infusion; IV Intake: 10ml ak1 Intake: 23:33 IV: 10ml; Total: 10ml. ak1 Outcome: 23:10 Discharge ordered by . wa 23:31 Discharged to home ambulatory. ak1 23:31 Condition: good 23:31 Discharge instructions given to patient, Instructed on discharge instructions, follow up and referral plans. no drinking with medication, no driving heavy equipment, medication usage, Demonstrated understanding of instructions, follow-up care, medications, wound care, Prescriptions given X 4. 23:31 Patient left the ED. ak1 Signatures: Dispatcher [employer] EDMS Angelica Stout RN RN aj1 Sanford, Demi ds1 Krenek, Amber, RN RN ak1 Colby Ricks Victoria vm2 Appiah, William, MD MD wa
--- NOTE | 2018-09-24 14:58 | RAD REPORT ---
EXAM DESCRIPTION: CT - Abdomen Pelvis Wo Contrast - 09/21/2018 3:09 am CLINICAL HISTORY: 53 years Male ABD PAIN COMPARISON: None TECHNIQUE: Images were obtained in axial, sagittal, and coronal planes. No intravenous contrast was administered. This exam was performed according to our departmental dose-optimization program which includes use of Automated Exposure Control, adjustment of the mA and/or kV according to patient size and/or use of i terative reconstruction technique. FINDINGS: Decreased attenuation involving the posterior right lobe of liver likely fatty change. Enl arged liver. Gallstones and sludge within gallbladder fundus. Possible phrygian cap. Spleen is enlarg ed measuring 17 cm in longitudinal dimension. Adrenal glands decreased in size bilaterally. Indistinct head of pancreas with findings suspicious for pancreatitis. Indistinct mesentery in region of root of mesentery. Mild mesenteric adenopathy. Edema duodenal sweep with adjacent ill-defined flu id. No obstructing renal calcifications bilaterally. No hydronephrosis bilaterally. Right renal cysts. Mu cosal thickening involving the bladder. Enlarged prostate gland. Calcification abdominal aorta with no dilatation seen. Surgical clips adjacent to cecum likely prior appendectomy. Appendix not identified. No bowel obstruc tion, or perforation. Mucosal thickening rectosigmoid colon. Diverticular change sigmoid colon. Calcified granuloma lower lobes bilaterally. No acute osseous abnormality. IMPRESSION: Hepatosplenomegaly with fatty change posterior right lobe of liver. Gallstones and sludg e within gallbladder fundus likely phrygian cap. Inflammatory changes in region of head of pancreas suspicious for pancreatitis. Adjacent inflammatory change involving the root of mesentery and duodenal sweep consistent with enteritis and duodenitis. Suspected cystitis. Colitis rectosigmoid region. Diverticulosis with no associated inflammatory caldwell e. Electronically signed by: Enedina Gay MD 09/20/2018 10:17 PM CDT Due to temporary technical issues with the PACS/Fluency reporting system, reports are being signed by the in house radiologist as a courtesy to ensure prompt reporting. The interpreting radiologist is f richardly responsible for the content of the report.
== END 2018-09-20 23:31 | disposition home or self-care (01) ==
LOC: ER 19:45
DX: K29.80 Duodenitis without bleeding (principal); K52.9 Noninfective gastroenteritis and colitis, unspecified; I10 Essential (primary) hypertension
CPT/HCPCS: 36415; 74176; 80048; 80076; 81003; 81015; 83690; 85025; 96365; 96375; 99284; J0696; J2405

== ENCOUNTER 2018-09-29 09:33 | Emergency (ER) | payer BC ==
--- OUTSIDE RECORDS SUMMARY | 2018-09-29 09:36 | XMS REPORT | Clinical Summary ---
:1965 Author Organization [facility] Address [address] [place] [address] Care Team Providers Name Role Phone Edouard Salgado Primary Care Provider Allergies No Known Allergies Medications Medication Sig Dispensed Refills Start Date End Date Status acetaminophen-codeine TK 2 TABLETS PO 0 08/12/2018 Active (TYLENOL #3) 300-30 Q 6 H PRN FOR mg per tablet PAIN ciprofloxacin HCl TK 1 T PO Q 12 0 09/21/2018 Active (CIPRO) 500 MG tablet H TAT. dexAMETHasone TK 1 T PO BID. 0 08/04/2018 Active (DECADRON) 2 MG tablet diazePAM (VALIUM) 5 TK 1 T PO Q 8 H 0 08/04/2018 Active MG tablet PRN. famotidine (PEPCID) TK 1 T PO QD. 0 09/21/2018 Active 20 MG tablet gabapentin TK 1 C PO TID 5 07/24/2018 Active (NEURONTIN) 400 MG capsule HYDROcodone-acetamino TK 1 T PO Q 6 H 0 07/27/2018 Active phen (NORCO 10-325) PRN 10-325 mg per tablet lactulose (CHRONULAC) Take 45 mLs (30 135 mL 0 09/28/2018 09/29/2018 Active 20 gram/30 mL g total) by solution mouth 3 (three) times daily for 1 day. senna-docusate Take 1 tablet by 20 tablet 0 09/28/2018 09/28/2019 Active (SENOKOT S) 8.6-50 mg mouth daily. per tablet bisacodyl (FLEET) 10 Place 30 mLs (10 30 mL 0 09/28/2018 09/28/2018 mg/30 mL Enem enema mg total) rectally once for 1 dose. Active Problems Not on file Encounters Date Type Specialty Care Team Description 09/28/2018 Emergency Emergency Medicine Artemio Cox, Abdominal pain, unspecified abdominal location (Primary Dx); Constipation, unspecified constipation type 09/28/2018 Travel after 09/28/2017 Social History Tobacco Use Types Packs/Day Years Used Date Former Smoker Smokeless Tobacco: Never Used Alcohol Use Drinks/Week oz/Week Comments Yes occasional Sex Assigned at Date Recorded Not on file Job Start Date Occupation Industry Not on file Not on file Not on file Travel History Travel Start Travel End No recent travel history available. Last Filed Vital Signs Vital Sign Reading Time Taken Blood Pressure 145/93 09/28/2018 1:00 PM CDT Pulse 89 09/28/2018 1:00 PM CDT Temperature 36.8 C (98.2 F) 09/28/2018 10:28 AM CDT Respiratory Rate 16 09/28/2018 1:00 PM CDT Oxygen Saturation 96% 09/28/2018 10:28 AM CDT Inhaled Oxygen Concentration - - Weight 145.2 kg (320 lb) 09/28/2018 10:28 AM CDT Height 185.4 cm (6' 1") 09/28/2018 10:28 AM CDT Body Mass Index 42.22 09/28/2018 10:28 AM CDT Plan of Treatment Not on file Procedures Procedure Name Priority Date/Time Associated Comments Diagnosis CBC W/PLT COUNT & STAT 09/28/2018 11:33 Results for this AUTO DIFFERENTIAL AM CDT procedure are in the results section. LIPASE STAT 09/28/2018 11:33 Results for this AM CDT procedure are in the results section. HEPATIC FUNCTION STAT 09/28/2018 11:33 Results for this PANEL AM CDT procedure are in the results section. CBC W/PLT COUNT & STAT 09/28/2018 11:33 Results for this AUTO DIFFERENTIAL AM CDT procedure are in the results section. BASIC METABOLIC PANEL STAT 09/28/2018 11:33 Results for this (7) AM CDT procedure are in the results section. XR ABDOMEN 1 VIEW STAT 09/28/2018 11:26 Results for this AM CDT procedure are in the results section. after 09/28/2017 Results CBC with platelet count + automated diff (09/28/2018 11:33 AM CDT) WBC 7.5 3.5 - 10.5 K/L [facility] RBC 4.83 4.63 - 6.08 M/L [facility] Hemoglobin 14.9 13.7 - 17.5 GM/DL [facility] Hematocrit 45.0 40.1 - 51.0 % [facility] MCV 93.2 (H) 79.0 - 92.2 fL [facility] MCH 30.8 25.7 - 32.2 pg [facility] MCHC 33.1 32.3 - 36.5 GM/DL [facility] RDW 14.6 (H) 11.6 - 14.4 % [facility] Platelets 222 150 - 450 K/CU MM [facility] MPV 10.2 9.4 - 12.4 fL [facility] nRBC 0 0 - 0 /100 WBC [facility] % Neutros 64 % [facility] % Lymphs 20 % [facility] % Monos 13 % [facility] % Eos 3 % [facility] % Baso 0 % [facility] # Neutros 4.80 1.78 - 5.38 K/L [facility] # Lymphs 1.48 1.32 - 3.57 K/L [facility] # Monos 0.94 (H) 0.30 - 0.82 K/L [facility] # Eos 0.23 0.04 - 0.54 K/L [facility] # Baso 0.02 0.01 - 0.08 K/L [facility] Immature Granulocytes-Relative 1 0 - 1 % [facility] Specimen Blood Performing Organization Address City/State/Zipcode Phone Number [address] [phone] [place] Lipase (09/28/2018 11:33 AM CDT) Lipase 20 8 - 78 U/L [facility] Specimen Blood Performing Organization Address [facility] Phone Number [address] [address] [place] Hepatic function panel (09/28/2018 11:33 AM CDT) Protein, Total 7.1 6.0 - 8.3 gm/dL [facility] Albumin 4.0 3.5 - 5.0 g/dL [facility] Total Bilirubin 0.3 0.2 - 1.2 mg/dL [facility] Bilirubin, Direct 0.2 0.1 - 0.5 mg/dL [facility] Alkaline Phosphatase 43 40 - 150 U/L [facility] AST 29 5 - 34 U/L [facility] ALT 28 6 - 55 U/L [facility] Specimen Blood Performing Organization Address City/[facility]/Zipcode Phone Number [address] [address] [place] Basic Metabolic Panel (09/28/2018 11:33 AM CDT) Sodium 138 136 - 145 meq/L [facility] Potassium 4.4 3.5 - 5.1 meq/L [facility] Chloride 104 98 - 107 meq/L [facility] CO2 28 22 - 29 meq/L [facility] BUN 28 (H) 7 - 21 mg/dL [facility] Creatinine 1.87 (H) 0.57 - 1.25 mg/dL [facility] Glucose 186 (H) 70 - 105 mg/dL [facility] Calcium 9.4 8.4 - 10.2 mg/dL [facility] EGFR 38Comment: ESTIMATED GFR IS mL/min/1.73 sq m [facility] NOT ACCURATE CREATININE [facility] CLEARANCE IN PREDICTING GLOMERULAR FILTRATION RATE. ESTIMATED GFR IS NOT APPLICABLE FOR DIALYSIS PATIENTS. Specimen Blood Performing Organization Address City/State/Zipcode Phone Number [facility] [address] [place] [address] CENTER XR abdomen / KUB 1 view (09/28/2018 11:26 AM CDT) Specimen Narrative Performed At FINAL REPORT [facility] RAD, ABDOMEN/KUB, 1 VIEW AP CLINICAL INDICATION: ABDOMINAL PAIN CONSTIPATION COMPARISON: Radiograph 09/28/2018 TECHNIQUE: AP view of the abdomen FINDINGS: Limited view of the abdomen with the upper quadrants excluded. There is a paucity of small bowel gas. There is a moderate to large stool burden within the ascending colon. Air is present distally in the rectum. Curvilinear lucencies in the mid abdomen and right lower quadrant likely represent air surrounding stool. Supine positioning and limited views precludes evaluation for free air. IMPRESSION: Very limited evaluation as discussed above. Moderate to large stool burden within the ascending colon. Signed: Jigna Crawley MD Report Verified Date/Time:09/28/2018 12:07:13 Reading Location: [facility] Radiology Reading Room Procedure Note Interface, External Ris In - 09/28/2018 12:09 PM CDT FINAL REPORT RAD, ABDOMEN/KUB, 1 VIEW AP CLINICAL INDICATION: ABDOMINAL PAIN CONSTIPATION COMPARISON: Radiograph 09/28/2018 TECHNIQUE: AP view of the abdomen FINDINGS: Limited view of the abdomen with the upper quadrants excluded. There is a paucity of small bowel gas. There is a moderate to large stool burden within the ascending colon. Air is present distally in the rectum. Curvilinear lucencies in the mid abdomen and right lower quadrant likely represent air surrounding stool. Supine positioning and limited views precludes evaluation for free air. IMPRESSION: Very limited evaluation as discussed above. Moderate to large stool burden within the ascending colon. Signed: Jigna Crawley MD Report Verified Date/Time: 09/28/2018 12:07:13 Reading Location: [facility] Reading Room Performing Organization Address City/State/Zipcode Phone Number GE RIS after 09/28/2017 Insurance Payer Benefit Plan / Subscriber ID Type Phone Address Group BLUE CROSS/BLUE [employer]BS OS xxxxxxxxxxxxxxx PPO [phone] [address] [employer] [place] [address]
--- OUTSIDE RECORDS SUMMARY | 2018-09-29 09:36 | XMS REPORT ---
:1965 Author Organization [facility] Address [address] [place] [address] Care Team Providers Name Role Phone JACKI PANDEY Unavailable Unavailable Problems This patient has no known problems. Allergies, Adverse Reactions, Alerts This patient has no known allergies or adverse reactions. Medications This patient has no known medications. Results Test Description Test Time Test Comments Text Results Atomic Results Result Comments LIPASE 2018-09-28 12:21:00 Test Item Value Reference Range Comments LIPASE (BEAKER) (test famm=458) 20 U/L 8-78 BASIC METABOLIC [id number] 12:21:00 Test Item Value Reference Range Comments SODIUM (BEAKER) (test 138 meq/L 136-145 eydx=527) POTASSIUM (BEAKER) (test 4.4 meq/L 3.5-5.1 jyxs=375) CHLORIDE (BEAKER) (test 104 meq/L 98-107 yegh=937) CO2 (BEAKER) (test 28 meq/L 22-29 fcqo=452) BLOOD UREA NITROGEN 28 mg/dL 7-21 (BEAKER) (test aaux=613) CREATININE (BEAKER) (test 1.87 mg/dL 0.57-1.25 dqlm=971) GLUCOSE RANDOM (BEAKER) 186 mg/dL 70-105 (test zxpl=873) CALCIUM (BEAKER) (test 9.4 mg/dL 8.4-10.2 nobv=796) EGFR (BEAKER) (test 38 mL/min/1.73 sq m ESTIMATED GFR IS NOT srko=8746) ACCURATE CREATININE CLEARANCE IN PREDICTING GLOMERULAR FILTRATION RATE. ESTIMATED GFR IS NOT APPLICABLE FOR DIALYSIS PATIENTS. HEPATIC FUNCTION [id number] 12:21:00 Test Item Value Reference Range Comments TOTAL PROTEIN (BEAKER) (test iskm=386) 7.1 gm/dL 6.0-8.3 ALBUMIN (BEAKER) (test quid=0665) 4.0 g/dL 3.5-5.0 BILIRUBIN TOTAL (BEAKER) (test fezz=695) 0.3 mg/dL 0.2-1.2 BILIRUBIN DIRECT (BEAKER) (test kaor=922) 0.2 mg/dL 0.1-0.5 ALKALINE PHOSPHATASE (BEAKER) (test uyqj=331) 43 U/L 40-150 AST (SGOT) (BEAKER) (test cgft=219) 29 U/L 5-34 ALT (SGPT) (BEAKER) (test pqna=981) 28 U/L 6-55 RAD, ABDOMEN/KUB, 1 VIEW [id number] 12:07:00Reason for exam:->ABDOMINAL PAINx 1 weekReason for exam:->CONSTIPATIONFINAL REPORT RAD, ABDOMEN/KUB, 1 VIEW AP CLINICAL INDICATION: ABDOMINAL PAINCONSTIPATION COMPARISON: Radiograph 09/28/2018 TECHNIQUE: AP view of the abdomen FINDINGS: Limited view of the abdomen with the upper quadrants excluded. There is a paucity of small bowel gas. There is a moderate to large stool burden within the ascending colon. Air is present distally in the rectum. Curvilinear lucencies in the mid abdomen and right lower quadrant likely represent air surrounding stool.Supine positioning and limited views precludes evaluation for free air. IMPRESSION:Very limited evaluation as discussed above.Moderate to large stool burden within the ascending colon. Signed: Jigna Crawley MDReport Verified Date/Time: 09/28/2018 12:07:13 Reading Location: [facility] Radiology Reading Room CBC W/PLT COUNT & AUTO [id number] 11:44:00 Test Item Value Reference Range Comments WHITE BLOOD CELL COUNT (BEAKER) (test otgw=128) 7.5 K/ L 3.5-10.5 RED BLOOD CELL COUNT (BEAKER) (test cyrf=546) 4.83 M/ L 4.63-6.08 HEMOGLOBIN (BEAKER) (test szhq=167) 14.9 GM/DL 13.7-17.5 HEMATOCRIT (BEAKER) (test phts=022) 45.0 % 40.1-51.0 MEAN CORPUSCULAR VOLUME (BEAKER) (test xmkl=169) 93.2 fL 79.0-92.2 MEAN CORPUSCULAR HEMOGLOBIN (BEAKER) (test 30.8 pg 25.7-32.2 urko=523) MEAN CORPUSCULAR HEMOGLOBIN CONC (BEAKER) (test 33.1 GM/DL 32.3-36.5 bfpp=696) RED CELL DISTRIBUTION WIDTH (BEAKER) (test 14.6 % 11.6-14.4 llfr=335) PLATELET COUNT (BEAKER) (test yzar=830) 222 K/CU MM 150-450 MEAN PLATELET VOLUME (BEAKER) (test sixb=416) 10.2 fL 9.4-12.4 NUCLEATED RED BLOOD CELLS (BEAKER) (test 0 /100 WBC 0-0 dxpz=556) NEUTROPHILS RELATIVE PERCENT (BEAKER) (test 64 % nioh=334) LYMPHOCYTES RELATIVE PERCENT (BEAKER) (test 20 % vtyq=009) MONOCYTES RELATIVE PERCENT (BEAKER) (test 13 % ixof=190) EOSINOPHILS RELATIVE PERCENT (BEAKER) (test 3 % eqwx=379) BASOPHILS RELATIVE PERCENT (BEAKER) (test 0 % hwkr=827) NEUTROPHILS ABSOLUTE COUNT (BEAKER) (test 4.80 K/ L 1.78-5.38 gmug=620) LYMPHOCYTES ABSOLUTE COUNT (BEAKER) (test 1.48 K/ L 1.32-3.57 pxxg=320) MONOCYTES ABSOLUTE COUNT (BEAKER) (test 0.94 K/ L 0.30-0.82 wgun=132) EOSINOPHILS ABSOLUTE COUNT (BEAKER) (test 0.23 K/ L 0.04-0.54 tlrg=681) BASOPHILS ABSOLUTE COUNT (BEAKER) (test 0.02 K/ L 0.01-0.08 ljfo=532) IMMATURE GRANULOCYTES-RELATIVE PERCENT (BEAKER) 1 % 0-1 (test xafv=6767)
[2018-09-29] MEDS ORDERED: MORPHINE 4 MG/ML SYR ONE (10:08)
[2018-09-29] MEDS ORDERED: NA CHLORIDE 0.9% 1,000 ML ONE (10:09)
[2018-09-29] MEDS ORDERED: ONDANSETRON 4 MG/2 ML VIAL ONE (10:09)
[2018-09-29 10:29] LABS: Absolute Lymphocytes (CBC) 1.7 K/uL (0.7-4.9); Basophils % 0.7 % (0-1.3); Hematocrit 49.2 % (39.6-49.0); Lymphocytes % 13.7 % (15.3-44.8); MPV 8.9 fL (7.6-11.3); RBC Red Blood Cell Count 5.29 M/uL (4.33-5.43)
[2018-09-29] MEDS ORDERED: KETOROLAC 30 MG/ML INJ ONE (10:32)
[2018-09-29 10:46] LABS: Albumin 4.2 g/dL (3.4-5.0); Bilirubin Direct 0.2 mg/dL (0-0.2); Bilirubin Total 0.6 mg/dL (0.2-1.0); Potassium 3.9 mmol/L (3.5-5.1); Protein, Total 8.3 g/dL (6.4-8.2)
[2018-09-29 11:10] LABS: Urine Blood TRACE (NEG); Urine Glucose NEGATIVE (NEG); Urine Protein NEGATIVE (NEG); Urine Specific Gravity 1.025 (1.005-1.030)
--- NOTE | 2018-09-29 12:03 | RAD REPORT ---
EXAM DESCRIPTION: CT - Stone Protocol - 09/29/2018 10:52 am CLINICAL HISTORY: Flank pain. ABD PAIN COMPARISON: Abdomen Pelvis Wo Contrast dated 09/20/2018 TECHNIQUE: Axial images were obtained without oral or IV contrast. Lack of contrast limits solid org an and vascular assessment. The rlcvr-ll-vfgs spans the entirety of the system partially obscuring uppermost abdomen and lung bases. Coronal reformatted images were obtained and reviewed. All CT scans are performed using dose optimization technique as appropriate and may include automated exposure control or mA/KV adjustment according to patient size. FINDINGS: Calcified granuloma are present in the lung bases. The liver appears prominent in size.The spleen is normal in size. The pancreas and adrenal glands are normal. No pathologic lymphadenopathy in the abdomen or pelvis. No urinary tract stones or obstructive uropathy. Prominent right renal cyst measuring 6.7 cm noted. No bowel obstruction, free air, free fluid or abscess. Several thickened and mildly inflamed small alcides wel loops are seen lower anterior abdomen. Prominent fecal retention is seen in the colon diverticulo sis coli present.Appendectomy. Moderate lower lumbar spondylosis. IMPRESSION: Several mildly thickened inflamed small bowel loops are seen in the anterior lower abdom en which may indicate enteritis. Moderate stool retained in the colon. Diverticulosis coli.
--- NOTE | 2018-09-29 12:10 | EDPHYS ---
Physician Documentation [facility] Name: Jose Antonio Summers Age: 53 yrs Sex: Male : 1965 Arrival Date: 09/29/2018 Time: 09:34 Bed 18 Private MD: LINDA Physician El Castillo HPI: 09/29 10:50 This 53 yrs old Male presents to ER via Wheelchair with complaints of kb Abdominal Pain. 10:50 The patient presents with abdominal pain that is diffuse. Onset: The symptoms/episode kb began/occurred 2 week(s) ago. The symptoms do not radiate. Associated signs and symptoms: Pertinent positives: constipation. The symptoms are described as constant, sharp. Modifying factors: The symptoms are alleviated by nothing, the symptoms are aggravated by pressure. Severity of pain: At its worst the pain was moderate in the emergency department the pain is unchanged. The patient has not experienced similar symptoms in the past. The patient has been recently seen by a physician:. Pt states he has had abd pain for 2 weeks. Was seen here on 09/20 and told he had an infection and was close to dying. STates he was given a week of antibiotics for that. Completed course and followed up with PCP (Naomi) yesterday and was told he needed to go to the ER immediately or he was going to . Went to [facility] and they diagnosed constipation and sent him home. . Historical: - Allergies: 10:02 No Known Allergies; iw - PMHx: 10:02 Hypertension; Diabetes; acromegaly; iw - PSHx: 10:02 pituitary gland removed; Hernia repair; Appendectomy; iw - Immunization history:: Adult Immunizations up to date. - Social history:: Smoking status: Patient/guardian denies using tobacco. - Ebola Screening: : Patient negative for fever greater than or equal to 101.5 degrees Fahrenheit, and additional compatible Ebola Virus Disease symptoms Patient denies exposure to infectious person Patient denies travel to an Ebola-affected area in the 21 days before illness onset No symptoms or risks identified at this time. ROS: 10:54 Constitutional: Negative for fever, chills, and weight loss, Neck: Negative for injury, kb pain, and swelling, Cardiovascular: Negative for chest pain, palpitations, and edema, Respiratory: Negative for shortness of breath, cough, wheezing, and pleuritic chest pain, Back: Negative for injury and pain, : Negative for injury, bleeding, discharge, and swelling, MS/Extremity: Negative for injury and deformity, Skin: Negative for injury, rash, and discoloration, Neuro: Negative for headache, weakness, numbness, tingling, and seizure. 10:54 Abdomen/GI: Positive for abdominal pain, nausea and vomiting, constipation. Exam: 10:54 Constitutional: This is a well developed, well nourished patient who is awake, alert, kb and in no acute distress. Head/Face: Normocephalic, atraumatic. ENT: Nares patent. No nasal discharge, no septal abnormalities noted. Tympanic membranes are normal and external auditory canals are clear. Oropharynx with no redness, swelling, or masses, exudates, or evidence of obstruction, uvula midline. Mucous membranes moist. Neck: Trachea midline, no thyromegaly or masses palpated, and no cervical lymphadenopathy. Supple, full range of motion without nuchal rigidity, or vertebral point tenderness. No Meningismus. Chest/axilla: Normal chest wall appearance and motion. Nontender with no deformity. No lesions are appreciated. Cardiovascular: Regular rate and rhythm with a normal S1 and S2. No gallops, murmurs, or rubs. Normal PMI, no JVD. No pulse deficits. Respiratory: Lungs have equal breath sounds bilaterally, clear to auscultation and percussion. No rales, rhonchi or wheezes noted. No increased work of breathing, no retractions or nasal flaring. Back: No spinal tenderness. No costovertebral tenderness. Full range of motion. Skin: Warm, dry with normal turgor. Normal color with no rashes, no lesions, and no evidence of cellulitis. MS/ Extremity: Pulses equal, no cyanosis. Neurovascular intact. Full, normal range of motion. Neuro: Awake and alert, GCS 15, oriented to person, place, time, and situation. Cranial nerves II-XII grossly intact. Motor strength 5/5 in all extremities. Sensory grossly intact. Cerebellar exam normal. Normal gait. 10:54 Abdomen/GI: Inspection: abdomen appears normal, Bowel sounds: normal, in all quadrants, Palpation: soft, in all quadrants, moderate abdominal tenderness, in the right upper quadrant, left upper quadrant and right lower quadrant. Vital Signs: 10:02 BP 143 / 95; Pulse 93; Resp 18 S; Temp 97.7(TE); Pulse Ox 97% on R/A; Weight 145.15 kg; iw Height 6 ft. 1 in. (185.42 cm); Pain 1010; 11:26 BP 147 / 67 RA Sitting (/lg); Pulse 88; Resp 20; Temp 98.2(O); Pain 9/10; tt1 10:02 Body Mass Index 42.22 (145.15 kg, 185.42 cm) iw MDM: 09:46 Patient medically screened. kb 10:55 Data reviewed: vital signs, nurses notes. Data interpreted: Pulse oximetry: on room air kb is 97 %. Interpretation: normal. 12:06 Counseling: I had a detailed discussion with the patient and/or guardian regarding: the kb historical points, exam findings, and any diagnostic results supporting the discharge/admit diagnosis, lab results, radiology results, the need for outpatient follow up, a family practitioner, a projects manager, to return to the emergency department if symptoms worsen or persist or if there are any questions or concerns that arise at home. 09/29 10:04 Order name: Basic Metabolic Panel; Complete Time: 10:49 kb 09/29 10:04 Order name: CBC with Diff; Complete Time: 10:35 kb 09/29 10:04 Order name: Hepatic Function; Complete Time: 10:49 kb 09/29 10:04 Order name: Lipase; Complete Time: 10:49 kb 09/29 10:15 Order name: CT Stone Protocol; Complete Time: 12:05 kb 09/29 11:04 Order name: Urine Dipstick--Ancillary (enter results); Complete Time: 11:17 em1 09/29 10:04 Order name: IV Saline Lock; Complete Time: 10:26 kb 09/29 10:04 Order name: Labs collected and sent; Complete Time: 10:26 kb Administered Medications: 10:20 Drug: NS 0.9% 1000 ml Route: IV; Rate: 1000 ml; Site: left antecubital; iw 12:42 Follow up: IV Status: Completed infusion; IV Intake: 1000ml em 10:20 Drug: Zofran 4 mg Route: IVP; Site: left antecubital; iw 10:39 Follow up: Response: No adverse reaction; Nausea is decreased iw 10:22 Drug: morphine 4 mg Route: IVP; Site: left antecubital; iw 10:34 Follow up: Response: No adverse reaction; Pain is unchanged, physician notified; RASS: iw Alert and Calm (0) 10:37 Drug: Ketorolac 15 mg Route: IVP; Site: left antecubital; iw 11:15 Follow up: Response: No adverse reaction; Pain is decreased em 12:27 Drug: Magnesium Citrate Liquid 300 ml Route: PO; em 12:43 Follow up: Response: No adverse reaction em 12:36 Drug: Bentyl 20 mg Route: PO; em 12:43 Follow up: Response: Medication administered at discharge. em Disposition: 09/29/18 12:09 Discharged to Home. Impression: Enteritis, Constipation. - Condition is Stable. - Discharge Instructions: Viral Gastroenteritis, Adult, Ngkf-ea-[id number], Constipation, Adult, [id number]. - Medication Reconciliation Form, Thank You Letter, Antibiotic Education, Prescription Opioid Use form. - Follow up: Emergency Department; When: As needed; Reason: Worsening of condition. Follow up: Private Physician; When: 2 - 3 days; Reason: Recheck today's complaints, Continuance of care, Re-evaluation by your physician. Addendum: 10/01/2018 09:32 Co-signature as Attending Physician, El Castillo MD I agree with the assessment and c sanchez plan of care. Signatures: Dispatcher [employer] EDRonda Velez, PAPER MACHINE BACKTENDER-C PAPER MACHINE BACKTENDER-Ckb El Castillo MD MD cha Munoz, Edgar, DIALYSIS CLINICAL MANAGER DIALYSIS CLINICAL MANAGER em Alethea Sullivan, ARANZA RN iw Corrections: (The following items were deleted from the chart) 09/29 12:46 12:09 09/29/2018 12:09 Discharged to Home. Impression: Enteritis; Constipation. em Condition is Stable. Forms are Medication Reconciliation Form, Thank You Letter, Antibiotic Education, Prescription Opioid Use. Follow up: Emergency Department; When: As needed; Reason: Worsening of condition. Follow up: Private Physician; When: 2 - 3 days; Reason: Recheck today's complaints, Continuance of care, Re-evaluation by your physician. kb
--- NOTE | 2018-09-29 12:10 | ER ---
Nurse's Notes [facility] Name: Jose Antonio Summers Age: 53 yrs Sex: Male : 1965 Arrival Date: 09/29/2018 Time: 09:34 Bed 18 Private MD: Diagnosis: Enteritis;Constipation Presentation: 09/29 09:56 Presenting complaint: Patient states: was seen at [facility] yesterday, diagnosed iw with constipation, was given a laxative and had a large BM, was feeling better yesterday but ate a ham and cheese sandwich last night and started having more abd pain, last BM prior to yesterday was over a week ago, is on pian medicine for chronic pain. Transition of care: patient was not received from another setting of care. Onset of symptoms was September 29, 2018. Risk Assessment: Do you want to hurt yourself or someone else? Patient reports no desire to harm self or others. Initial Sepsis Screen: Does the patient meet any 2 criteria? No. Patient's initial sepsis screen is negative. Does the patient have a suspected source of infection? No. Patient's initial sepsis screen is negative. Care prior to arrival: None. 09:56 Method Of Arrival: Wheelchair 09:56 Acuity: SANKET 3 iw Historical: - Allergies: 10:02 No Known Allergies; iw - PMHx: 10:02 Hypertension; Diabetes; acromegaly; iw - PSHx: 10:02 pituitary gland removed; Hernia repair; Appendectomy; iw - Immunization history:: Adult Immunizations up to date. - Social history:: Smoking status: Patient/guardian denies using tobacco. - Ebola Screening: : Patient negative for fever greater than or equal to 101.5 degrees Fahrenheit, and additional compatible Ebola Virus Disease symptoms Patient denies exposure to infectious person Patient denies travel to an Ebola-affected area in the 21 days before illness onset No symptoms or risks identified at this time. Screenin:10 Abuse screen: Denies threats or abuse. Nutritional screening: No deficits noted. iw Tuberculosis screening: No symptoms or risk factors identified. Fall Risk None identified. Assessment: 10:10 General: Appears in no apparent distress. uncomfortable, Behavior is calm, cooperative, em Denies fever. Pain: Complains of pain in abdomen Pain currently is 10 out of 10 on a pain scale. Neuro: Level of Consciousness is awake, alert, obeys commands, Oriented to person, place, time, situation. Cardiovascular: Capillary refill < 3 seconds. Respiratory: Airway is patent Respiratory effort is even, unlabored, Respiratory pattern is regular, symmetrical. GI: Abdomen is round non-distended, Bowel sounds present X 4 quads. Abd is soft X 4 quads Abdomen is tender to palpation X 4 quads. Reports nausea, vomiting. Derm: Skin is intact, is healthy with good turgor, Skin is clammy, Skin is normal. Musculoskeletal: Capillary refill < 3 seconds, Range of motion: intact in all extremities. 11:08 Reassessment: Patient appears in no apparent distress at this time. reports medication iw has not worked, provider notified. 11:50 Reassessment: Patient appears in no apparent distress at this time. Patient and/or em family updated on plan of care and expected duration. Pain level reassessed. Patient is alert, oriented x 3, equal unlabored respirations, skin warm/dry/pink. moaning and groaning, provider notified. 12:20 Reassessment: reports pain is 8/10, request something else for pain before being em discharged, provider notified, new medication orders received. Vital Signs: 10:02 BP 143 / 95; Pulse 93; Resp 18 S; Temp 97.7(TE); Pulse Ox 97% on R/A; Weight 145.15 kg; iw Height 6 ft. 1 in. (185.42 cm); Pain 10/10; 11:26 BP 147 / 67 RA Sitting (/lg); Pulse 88; Resp 20; Temp 98.2(O); Pain 9/10; tt1 10:02 Body Mass Index 42.22 (145.15 kg, 185.42 cm) iw ED Course: 09:34 Patient arrived in ED. as 09:36 Ronda Wise FNP-C is [facility]. kb 09:36 El Castillo MD is Attending Physician. kb 09:58 Kurt Norris LVN is Primary Nurse. em 10:01 Triage completed. iw 10:02 Arm band placed on. iw 10:10 Patient has correct armband on for positive identification. Bed in low position. Call iw light in reach. Pulse ox on. NIBP on. 10:20 Initial lab(s) drawn, by me, sent to lab. Inserted saline lock: 20 gauge in left iw antecubital area, using aseptic technique. Blood collected. 10:54 CT Stone Protocol In Process Unspecified. EDMS 12:46 No provider procedures requiring assistance completed. IV discontinued, intact, em bleeding controlled, No redness/swelling at site. Pressure dressing applied. Administered Medications: 10:20 Drug: NS 0.9% 1000 ml Route: IV; Rate: 1000 ml; Site: left antecubital; iw 12:42 Follow up: IV Status: Completed infusion; IV Intake: 1000ml em 10:20 Drug: Zofran 4 mg Route: IVP; Site: left antecubital; iw 10:39 Follow up: Response: No adverse reaction; Nausea is decreased iw 10:22 Drug: morphine 4 mg Route: IVP; Site: left antecubital; iw 10:34 Follow up: Response: No adverse reaction; Pain is unchanged, physician notified; RASS: iw Alert and Calm (0) 10:37 Drug: Ketorolac 15 mg Route: IVP; Site: left antecubital; iw 11:15 Follow up: Response: No adverse reaction; Pain is decreased em 12:27 Drug: Magnesium Citrate Liquid 300 ml Route: PO; em 12:43 Follow up: Response: No adverse reaction em 12:36 Drug: Bentyl 20 mg Route: PO; em 12:43 Follow up: Response: Medication administered at discharge. em Intake: 12:42 IV: 1000ml; Total: 1000ml. em Outcome: 12:09 Discharge ordered by . kb 12:46 Discharged to home ambulatory. em 12:46 Condition: good 12:46 Discharge instructions given to patient, Instructed on discharge instructions, follow up and referral plans. Demonstrated understanding of instructions, follow-up care. 12:46 Patient left the ED. em Signatures: Dispatcher [employer] LINDAMS Ronda Wise, STICK ROLLER-C STICK ROLLER-Kurt Leo, TOD QUANTITY SURVEYOR Amina Fleming Irene, ARANZA RN iw Mckenna Vera tt1
[2018-09-29] MEDS ORDERED: MAGNESIUM CITRATE 300 ML BOT ONE (12:15)
[2018-09-29] MEDS ORDERED: DICYCLOMINE HCL 10 MG CAP ONE (12:29)
== END 2018-09-29 12:46 | disposition home or self-care (01) ==
LOC: ER 09:33
DX: K52.9 Noninfective gastroenteritis and colitis, unspecified (principal); K59.00 Constipation, unspecified; I10 Essential (primary) hypertension; E11.9 Type 2 diabetes mellitus without complications
CPT/HCPCS: 96361; 85025; 80048; 36415; 80076; 81003; 83690; 76377; 74176; 96375; 96374; 99284; J7030; J2405

== ENCOUNTER 2018-09-29 20:13 | Emergency (ER) | payer BC ==
--- OUTSIDE RECORDS SUMMARY | 2018-09-29 20:16 | XMS REPORT | Clinical Summary ---
:1965 Author Organization [facility] Address [address] [place] [address] Care Team Providers Name Role Phone Edouard [...] CENTER RBC 4.83 4.63 - 6.08 M/L [facility] Hemoglobin 14.9 13.7 - 17.5 GM/DL [facility] Hematocrit 45.0 40.1 - 51.0 % [facility] MCV 93.2 (H) 79.0 - 92.2 fL [facility] MCH 30.8 25.7 - 32.2 pg [facility] MCHC 33.1 32.3 - 36.5 GM/DL [facility] RDW 14.6 (H) 11.6 - 14.4 % [facility] Platelets 222 150 - 450 K/CU MM [facility] MPV 10.2 9.4 - 12.4 fL [facility] nRBC 0 0 - 0 /100 WBC [facility] % Neutros 64 % [facility] % Lymphs 20 % [facility] % Monos 13 % [facility] % Eos 3 % [facility] % Baso 0 % [facility] # Neutros 4.80 1.78 - 5.38 K/L [facility] # Lymphs 1.48 1.32 - 3.57 K/L [facility] # Monos 0.94 (H) 0.30 - 0.82 K/L [facility] # Eos 0.23 0.04 - 0.54 K/L [facility] # Baso 0.02 0.01 - 0.08 K/L [facility] Immature Granulocytes-Relative 1 0 - 1 % [facility] Specimen Blood Performing Organization Address City/State/Zipcode Phone Number [address] [phone] [place] Lipase (09/28/2018 11:33 AM CDT) Lipase 20 8 - 78 U/L [facility] Specimen Blood Performing Organization Address [facility] Phone Number [address] [address] [place] Hepatic function panel (09/28/2018 11:33 AM CDT) Protein, Total 7.1 6.0 - 8.3 gm/dL [facility] Albumin 4.0 3.5 - 5.0 g/dL [facility] Total Bilirubin 0.3 0.2 - 1.2 mg/dL [facility] Bilirubin, Direct 0.2 0.1 - 0.5 mg/dL [facility] Alkaline Phosphatase 43 40 - 150 U/L [facility] AST 29 5 - 34 U/L [facility] ALT 28 6 - 55 U/L [facility] Specimen Blood Performing Organization Address City/[facility]/Zipcode Phone Number [address] [address] [place] Basic Metabolic Panel (09/28/2018 11:33 AM CDT) Sodium 138 136 - 145 meq/L [facility] Potassium 4.4 3.5 - 5.1 meq/L [facility] Chloride 104 98 - 107 meq/L [facility] CO2 28 22 - 29 meq/L [facility] BUN 28 (H) 7 - 21 mg/dL [facility] Creatinine 1.87 (H) 0.57 - 1.25 mg/dL [facility] Glucose 186 (H) 70 - 105 mg/dL [facility] Calcium 9.4 8.4 - 10.2 mg/dL [facility] EGFR 38Comment: ESTIMATED GFR IS mL/min/1.73 sq m [facility] NOT ACCURATE CREATININE [facility] CENTER CLEARANCE IN PREDICTING GLOMERULAR FILTRATION RATE. ESTIMATED GFR IS NOT APPLICABLE FOR DIALYSIS PATIENTS. Specimen Blood Performing Organization Address City/State/Zipcode Phone Number [facility] [address] [place] [address] CENTER XR abdomen / KUB 1 view [...] MD Report Verified Date/Time:09/28/2018 12:07:13 Reading Location: [facility] Radiology Reading Room Procedure Note Interface, [...] Group BLUE CROSS/BLUE [employer]BS OS xxxxxxxxxxxxxxx PPO [phone] [address] SHIELD POS/PPO/[place] [address]
--- OUTSIDE RECORDS SUMMARY | 2018-09-29 20:16 | XMS REPORT ---
:1965 [facility] Address [address] [place] [address] Care Team Providers Name Role Phone JACKI PANDEY Unavailable Unavailable Problems This patient has no known problems. Allergies, Adverse Reactions, Alerts This patient has no known allergies or adverse reactions. Medications This patient has no known medications. Results Test Description Test Time Test Comments Text Results Atomic Results Result Comments LIPASE 2018-09-28 12:21:00 Test Item Value Reference Range Comments LIPASE (BEAKER) (test qdlc=621) 20 U/L 8-78 BASIC METABOLIC [id number] 12:21:00 Test Item Value Reference Range Comments SODIUM (BEAKER) (test 138 meq/L 136-145 uscx=365) POTASSIUM (BEAKER) (test 4.4 meq/L 3.5-5.1 yaau=062) CHLORIDE (BEAKER) (test 104 meq/L 98-107 shaw=603) CO2 (BEAKER) (test 28 meq/L 22-29 zibm=190) BLOOD UREA NITROGEN 28 mg/dL 7-21 (BEAKER) (test vnts=599) CREATININE (BEAKER) (test 1.87 mg/dL 0.57-1.25 qpej=377) GLUCOSE RANDOM (BEAKER) 186 mg/dL 70-105 (test jbkp=347) CALCIUM (BEAKER) (test 9.4 mg/dL 8.4-10.2 dqag=521) EGFR (BEAKER) (test 38 mL/min/1.73 sq m ESTIMATED GFR IS NOT mjpx=6323) ACCURATE CREATININE CLEARANCE IN PREDICTING GLOMERULAR FILTRATION RATE. ESTIMATED GFR IS NOT APPLICABLE FOR DIALYSIS PATIENTS. HEPATIC FUNCTION [id number] 12:21:00 Test Item Value Reference Range Comments TOTAL PROTEIN (BEAKER) (test mjcs=757) 7.1 gm/dL 6.0-8.3 ALBUMIN (BEAKER) (test xanl=1105) 4.0 g/dL 3.5-5.0 BILIRUBIN TOTAL (BEAKER) (test xjck=164) 0.3 mg/dL 0.2-1.2 BILIRUBIN DIRECT (BEAKER) (test mmpu=965) 0.2 mg/dL 0.1-0.5 ALKALINE PHOSPHATASE (BEAKER) (test hauz=915) 43 U/L 40-150 AST (SGOT) (BEAKER) (test hmnm=035) 29 U/L 5-34 ALT (SGPT) (BEAKER) (test qisc=716) 28 U/L 6-55 RAD, ABDOMEN/KUB, 1 VIEW [id number] 12:07:00Reason for exam:->ABDOMINAL PAINx 1 weekReason for [...] MDReport Verified Date/Time: 09/28/2018 12:07:13 Reading Location: [facility] Radiology Reading Room CBC W/PLT COUNT & AUTO [id number] 11:44:00 Test Item Value Reference Range Comments WHITE BLOOD CELL COUNT (BEAKER) (test fxkh=923) 7.5 K/ L 3.5-10.5 RED BLOOD CELL COUNT (BEAKER) (test gckw=114) 4.83 M/ L 4.63-6.08 HEMOGLOBIN (BEAKER) (test htgz=132) 14.9 GM/DL 13.7-17.5 HEMATOCRIT (BEAKER) (test hshs=995) 45.0 % 40.1-51.0 MEAN CORPUSCULAR VOLUME (BEAKER) (test bcnf=938) 93.2 fL 79.0-92.2 MEAN CORPUSCULAR HEMOGLOBIN (BEAKER) (test 30.8 pg 25.7-32.2 ciax=552) MEAN CORPUSCULAR HEMOGLOBIN CONC (BEAKER) (test 33.1 GM/DL 32.3-36.5 ghzt=641) RED CELL DISTRIBUTION WIDTH (BEAKER) (test 14.6 % 11.6-14.4 mkrj=673) PLATELET COUNT (BEAKER) (test rlxw=592) 222 K/CU MM 150-450 MEAN PLATELET VOLUME (BEAKER) (test farl=745) 10.2 fL 9.4-12.4 NUCLEATED RED BLOOD CELLS (BEAKER) (test 0 /100 WBC 0-0 gayh=904) NEUTROPHILS RELATIVE PERCENT (BEAKER) (test 64 % rbpk=739) LYMPHOCYTES RELATIVE PERCENT (BEAKER) (test 20 % nvio=790) MONOCYTES RELATIVE PERCENT (BEAKER) (test 13 % xgxs=868) EOSINOPHILS RELATIVE PERCENT (BEAKER) (test 3 % mokn=354) BASOPHILS RELATIVE PERCENT (BEAKER) (test 0 % xugf=235) NEUTROPHILS ABSOLUTE COUNT (BEAKER) (test 4.80 K/ L 1.78-5.38 cxpv=546) LYMPHOCYTES ABSOLUTE COUNT (BEAKER) (test 1.48 K/ L 1.32-3.57 mptl=294) MONOCYTES ABSOLUTE COUNT (BEAKER) (test 0.94 K/ L 0.30-0.82 ffeo=739) EOSINOPHILS ABSOLUTE COUNT (BEAKER) (test 0.23 K/ L 0.04-0.54 yebb=839) BASOPHILS ABSOLUTE COUNT (BEAKER) (test 0.02 K/ L 0.01-0.08 sdsx=821) IMMATURE GRANULOCYTES-RELATIVE PERCENT (BEAKER) 1 % 0-1 (test awbz=5636)
[2018-09-29] MEDS ORDERED: ONDANSETRON 4 MG/2 ML VIAL ONE (20:48)
[2018-09-29] MEDS ORDERED: MORPHINE 4 MG/ML SYR ONE (20:48)
[2018-09-29] MEDS ORDERED: DICYCLOMINE HCL 10 MG CAP ONE (21:19)
[2018-09-29] MEDS ORDERED: NA CHLORIDE 0.9% 1,000 ML ONE (21:20)
[2018-09-29] MEDS ORDERED: LACTULOSE 20 GM/30 ML UCUP ONE (21:58)
--- NOTE | 2018-09-29 21:58 | ER ---
Nurse's Notes [facility] Name: Jose Antonio Summers Age: 53 yrs Sex: Male : 1965 Arrival Date: 09/29/2018 Time: 20:16 Bed 16 Private MD: Diagnosis: Constipation Presentation: 09/29 20:05 Presenting complaint: EMS states: PT is reporting abdominal pain and constipation. jb4 20:05 Transition of care: patient was not received from another setting of care. Onset of jb4 symptoms was September 22, 2018. Risk Assessment: Do you want to hurt yourself or someone else? Patient reports no desire to harm self or others. Initial Sepsis Screen: Does the patient meet any 2 criteria? HR > 90 bpm. Does the patient have a suspected source of infection? Yes: Acute abdominal pain. Care prior to arrival: Medication(s) given: Fentanyl 100mcg. 20:05 Method Of Arrival: EMS: [facility] jb4 20:05 Acuity: SANKET 3 jb4 Historical: - Allergies: 20:05 No Known Allergies; jb4 - Home Meds: 20:05 Cortisone Acetate Oral [Active]; Synthroid Oral [Active]; Lantus Sub-Q [Active]; jb4 Insulin: Humalog Sub-Q [Active]; - PMHx: 20:05 Diabetes; Hypertension; acromegaly; jb4 - PSHx: 20:05 Appendectomy; Hernia repair; pituitary gland removed; jb4 - Immunization history:: Adult Immunizations unknown. - Social history:: Smoking status: Patient/guardian denies using tobacco, Patient uses alcohol, occasionally. - Ebola Screening: : No symptoms or risks identified at this time. Screenin:05 Abuse screen: Denies threats or abuse. Nutritional screening: No deficits noted. la1 Tuberculosis screening: No symptoms or risk factors identified. Fall Risk IV access (20 points). Total Castellanos Fall Scale indicates No Risk (0-24 pts). Assessment: 20:05 General: Appears uncomfortable, slender, Behavior is agitated, anxious, restless, jb4 uncooperative. Pain: Complains of pain in abdomen Pain does not radiate. Pain currently is 10 out of 10 on a pain scale. Quality of pain is described as crampy. Neuro: Level of Consciousness is awake, alert, obeys commands, Oriented to person, place, time, situation. Cardiovascular: Patient's skin is warm and dry. Respiratory: Airway is patent Respiratory effort is even, labored, shallow, Respiratory pattern is regular, symmetrical. GI: Abdomen is distended, obese, Bowel sounds present X 4 quads. Abdomen is tender to palpation X 4 quads. Abd is rigid X 4 quads. Reports lower abdominal pain, upper abdominal pain, constipation, nausea. : No deficits noted. No signs and/or symptoms were reported regarding the genitourinary system. EENT: No deficits noted. No signs and/or symptoms were reported regarding the EENT system. Derm: Skin is intact, Skin is pink, warm \T\ dry. Musculoskeletal: Circulation, motion, and sensation intact. Range of motion: intact in all extremities. 21:05 Reassessment: Patient appears in no apparent distress at this time. No changes from la1 previously documented assessment. Patient and/or family updated on plan of care and expected duration. Pain level reassessed. PT will not keep monitoring equipment on. 22:19 Reassessment: Patient appears in no apparent distress at this time. Patient and/or jb4 family updated on plan of care and expected duration. Pain level reassessed. Patient is alert, oriented x 3, equal unlabored respirations, skin warm/dry/pink. Pt waiting to finish IV fluids prior to discharge. 23:08 Reassessment: Patient appears in no apparent distress at this time. Patient and/or jb4 family updated on plan of care and expected duration. Pain level reassessed. Patient is alert, oriented x 3, equal unlabored respirations, skin warm/dry/pink. IV fluid placed on pressure bag. 23:36 Reassessment: Patient appears in no apparent distress at this time. Patient and/or jb4 family updated on plan of care and expected duration. Pain level reassessed. Patient is alert, oriented x 3, equal unlabored respirations, skin warm/dry/pink. Pt verbalized understanding of d/c and follow up instructions., assisted to lobby via wheelchair to wait for his ride. Vital Signs: 20:05 BP 150 / 91; Pulse 112; Resp 20; Temp 99.7(O); Pulse Ox 89% on R/A; Weight 145.15 kg jb4 (R); Height 6 ft. 1 in. (185.42 cm) (R); Pain 10/10; 20:52 BP 144 / 91; Pulse 123; Resp 20 S; Pulse Ox 89% on R/A; jb4 21:37 BP 149 / 104; Pulse 115; Resp 20; Pulse Ox 90% on R/A; la1 23:08 BP 139 / 104; Pulse 125; Resp 20; Pulse Ox 90% ; jb4 20:05 Body Mass Index 42.22 (145.15 kg, 185.42 cm) jb4 20:52 Blood pressure prior to morphine administration. jb4 21:37 Room post morphine administration. la1 ED Course: 20:05 Arm band placed on left wrist. jb4 20:05 Patient has correct armband on for positive identification. Bed in low position. Call la1 light in reach. Side rails up X 1. site monitor on. Pulse ox on. NIBP on. 20:05 Maintain EMS IV. Dressing intact. Good blood return noted. Site clean \T\ dry. Gauge \T\ la 1 site: 18g LAC. IV is patent, is intact, with fluids infusing freely, with good blood return. 20:16 Patient arrived in ED. jb4 20:21 Triage completed. jb4 20:21 Yovani Calderon NP is PHCP. pm1 20:21 Bernard Oneal MD is Attending Physician. pm1 20:30 Vito Brar, ARANZA is Primary Nurse. jb4 23:36 No provider procedures requiring assistance completed. IV discontinued, intact, jb4 bleeding controlled, No redness/swelling at site. Pressure dressing applied. Administered Medications: 20:54 Drug: Zofran 4 mg Route: IVP; Site: right antecubital; jb4 21:15 Follow up: Response: No adverse reaction; Nausea is decreased la1 20:56 Drug: morphine 4 mg {Note: RASS score of 1.} Route: IVP; Site: right antecubital; jb4 21:14 Follow up: Response: No adverse reaction; Pain is unchanged, physician notified; RASS: la1 Restless (+1) 21:25 Drug: Bentyl 20 mg Route: PO; la1 23:40 Follow up: Response: No adverse reaction; Pain is decreased jb4 21:25 Drug: NS 0.9% 1000 ml Route: IV; Rate: 1000 ml; Site: right antecubital; la1 23:39 Follow up: Response: No adverse reaction; IV Status: Completed infusion; IV Intake: jb4 1000ml 22:16 Drug: Lactulose 20 grams Volume: 30 ml; Route: PO; jb4 23:40 Follow up: Response: No adverse reaction jb4 Intake: 23:39 IV: 1000ml; Total: 1000ml. jb4 Outcome: 21:56 Discharge ordered by MD. pm1 23:36 Discharged to home via wheelchair. jb4 23:36 Condition: stable 23:36 Discharge instructions given to patient, Instructed on discharge instructions, follow up and referral plans. medication usage, Demonstrated understanding of instructions, follow-up care, medications, Prescriptions given X 1. 23:40 Patient left the ED. jb4 Signatures: Denny Simon RN RN la1 Yovani Calderon, BENJAMIN JEWEL CUPPING MACHINE OPERATOR pm1 Vito Brar RN RN jb4 Corrections: (The following items were deleted from the chart) 22:20 20:05 General: Appears uncomfortable, obese, Behavior is agitated, anxious, restless, jb4 uncooperative, la1 22:20 20:05 Pain: Complains of pain in abdomen Pain does not radiate. Pain currently is 10 jb4 out of 10 on a pain scale. Quality of pain is described as crampy, la1 22:20 20:05 Neuro: Level of Consciousness is awake, alert, obeys commands, Oriented to jb4 person, place, time, situation, la1 22:20 20:05 Cardiovascular: Patient's skin is warm and dry. la1 jb4 22:20 20:05 Respiratory: Airway is patent Respiratory effort is even, labored, shallow, jb4 Respiratory pattern is regular, symmetrical, la1 22:20 20:05 GI: Abdomen is distended, obese, Bowel sounds present X 4 quads. Abdomen is jb4 tender to palpation X 4 quads. Abd is rigid X 4 quads. Reports lower abdominal pain, upper abdominal pain, constipation, nausea, la1 22:20 20:05 : No deficits noted. No signs and/or symptoms were reported regarding the jb4 genitourinary system. la1 22:20 20:05 EENT: No deficits noted. No signs and/or symptoms were reported regarding the jb4 EENT system. la1 22:20 20:05 Derm: Skin is intact, Skin is pink, warm \T\ dry. la1 jb4 22:20 20:05 Musculoskeletal: Circulation, motion, and sensation intact. Range of motion: jb4 intact in all extremities, la1
--- NOTE | 2018-09-29 21:59 | EDPHYS ---
Physician Documentation [facility] Name: Jose Antonio Summers Age: 53 yrs Sex: Male : 1965 Arrival Date: 09/29/2018 Time: 20:16 Bed 16 Private MD: ED Physician Bernard Oneal HPI: 09/29 21:05 This 53 yrs old Male presents to ER via EMS with complaints of Abdominal pain pm1 and constipation. 21:05 The patient presents with abdominal pain that is diffuse. pm1 21:05 Onset: The symptoms/episode began/occurred 2 week(s) ago. The symptoms do not radiate. pm1 Associated signs and symptoms: Pertinent positives: constipation, Pertinent negatives: nausea and vomiting, chest pain, diarrhea, dysuria, fever, shortness of breath. The symptoms are described as constant. Modifying factors: The symptoms are alleviated by nothing, the symptoms are aggravated by nothing. Severity of pain: in the emergency department the pain is unchanged. The patient has experienced similar episodes in the past, multiple times. The patient has been recently seen at the [facility] Emergency Department, today, for similar complaints labs were performed, CT scan was performed. Historical: - Allergies: 20:05 No Known Allergies; jb4 - Home Meds: 20:05 Cortisone Acetate Oral [Active]; Synthroid Oral [Active]; Lantus Sub-Q [Active]; jb4 Insulin: Humalog Sub-Q [Active]; - PMHx: 20:05 Diabetes; Hypertension; acromegaly; jb4 - PSHx: 20:05 Appendectomy; Hernia repair; pituitary gland removed; jb4 - Immunization history:: Adult Immunizations unknown. - Social history:: Smoking status: Patient/guardian denies using tobacco, Patient uses alcohol, occasionally. - Ebola Screening: : No symptoms or risks identified at this time. ROS: 21:05 Constitutional: Negative for fever, chills, and weight loss, Eyes: Negative for injury, pm1 pain, redness, and discharge, ENT: Negative for injury, pain, and discharge, Neck: Negative for injury, pain, and swelling, Cardiovascular: Negative for chest pain, palpitations, and edema, Respiratory: Negative for shortness of breath, cough, wheezing, and pleuritic chest pain. 21:05 Back: Negative for injury and pain, : Negative for injury, bleeding, discharge, and swelling, MS/Extremity: Negative for injury and deformity, Skin: Negative for injury, rash, and discoloration, Neuro: Negative for headache, weakness, numbness, tingling, and seizure. 21:05 Abdomen/GI: Positive for abdominal pain, constipation, Negative for nausea, vomiting, and diarrhea. Exam: 21:05 Constitutional: This is a well developed, well nourished patient who is awake, alert, pm1 and in no acute distress. Head/Face: Normocephalic, atraumatic. Chest/axilla: Normal chest wall appearance and motion. Nontender with no deformity. No lesions are appreciated. Cardiovascular: Regular rate and rhythm with a normal S1 and S2. No gallops, murmurs, or rubs. Normal PMI, no JVD. No pulse deficits. Respiratory: Lungs have equal breath sounds bilaterally, clear to auscultation and percussion. No rales, rhonchi or wheezes noted. No increased work of breathing, no retractions or nasal flaring. 21:05 Back: No spinal tenderness. No costovertebral tenderness. Full range of motion. Skin: Warm, dry with normal turgor. Normal color with no rashes, no lesions, and no evidence of cellulitis. MS/ Extremity: Pulses equal, no cyanosis. Neurovascular intact. Full, normal range of motion. 21:05 Abdomen/GI: Inspection: abdomen appears normal, Bowel sounds: normal, Palpation: abdomen is soft and non-tender, in all quadrants, mass, is not appreciated, rebound tenderness, is not appreciated. 21:05 Neuro: Orientation: is normal, Motor: is normal, moves all fours. Vital Signs: 20:05 BP 150 / 91; Pulse 112; Resp 20; Temp 99.7(O); Pulse Ox 89% on R/A; Weight 145.15 kg jb4 (R); Height 6 ft. 1 in. (185.42 cm) (R); Pain 10/10; 20:52 BP 144 / 91; Pulse 123; Resp 20 S; Pulse Ox 89% on R/A; jb4 21:37 BP 149 / 104; Pulse 115; Resp 20; Pulse Ox 90% on R/A; la1 23:08 BP 139 / 104; Pulse 125; Resp 20; Pulse Ox 90% ; jb4 20:05 Body Mass Index 42.22 (145.15 kg, 185.42 cm) jb4 20:52 Blood pressure prior to morphine administration. jb4 21:37 Room post morphine administration. la1 MDM: 21:04 Patient medically screened. pm1 21:05 Data reviewed: vital signs. 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 21:57 ED course: Patient seen today in the ER for the same complaint. Reports that he was pm1 seen at [facility] 2 days ago for the same complaint and was discharged home. Today, labs performed with CT of abdomen and pelvis. Patient was given pain medications and magnesium citrate. Patient discharged home with diagnosis of constipation. Patient reports two small bowel movements at home. Returned to the ER with the same complaint of constipation with abdominal pain. Repeating labs or CT will not benefit the patient since patient presenting with the same complaint. Will give the patient additional pain medications and laxatives in the ER and for discharge. . 09/29 20:41 Order name: IV Saline Lock; Complete Time: 20:43 pm1 Administered Medications: 20:54 Drug: Zofran 4 mg Route: IVP; Site: right antecubital; jb4 21:15 Follow up: Response: No adverse reaction; Nausea is decreased la1 20:56 Drug: morphine 4 mg {Note: RASS score of 1.} Route: IVP; Site: right antecubital; jb4 21:14 Follow up: Response: No adverse reaction; Pain is unchanged, physician notified; RASS: la1 Restless (+1) 21:25 Drug: Bentyl 20 mg Route: PO; la1 23:40 Follow up: Response: No adverse reaction; Pain is decreased jb4 21:25 Drug: NS 0.9% 1000 ml Route: IV; Rate: 1000 ml; Site: right antecubital; la1 23:39 Follow up: Response: No adverse reaction; IV Status: Completed infusion; IV Intake: jb4 1000ml 22:16 Drug: Lactulose 20 grams Volume: 30 ml; Route: PO; jb4 23:40 Follow up: Response: No adverse reaction jb4 Disposition: 09/30 02:36 Co-signature as Attending Physician, Bernard Oneal MD. Disposition: 09/29/18 21:56 Discharged to Home. Impression: Constipation. - Condition is Stable. - Discharge Instructions: Constipation, Adult. - Prescriptions for Lactulose 10 gram/15 mL Oral Solution - take 30 milliliter by ORAL route once daily; 300 milliliter. - Medication Reconciliation Form, Thank You Letter, Antibiotic Education, Prescription Opioid Use form. - Follow up: Emergency Department; When: As needed; Reason: Worsening of condition. Follow up: Private Physician; When: 2 - 3 days; Reason: Recheck today's complaints, Continuance of care, Re-evaluation by your physician. - Problem is new. - Symptoms have improved. Signatures: Denny Simon, RN RN la1 Yovani Calderon, BENJAMIN CAD ADMINISTRATOR pm1 Vito Brar RN RN jb4 Bernard Oneal MD MD Corrections: (The following items were deleted from the chart) 09/29 23:40 21:56 09/29/2018 21:56 Discharged to Home. Impression: Constipation. Condition is jb4 Stable. Forms are Medication Reconciliation Form, Thank You Letter, Antibiotic Education, Prescription Opioid Use. Follow up: Emergency Department; When: As needed; Reason: Worsening of condition. Follow up: Private Physician; When: 2 - 3 days; Reason: Recheck today's complaints, Continuance of care, Re-evaluation by your physician. Problem is new. Symptoms have improved. pm1
== END 2018-09-29 23:40 | disposition home or self-care (01) ==
LOC: ER 20:13
DX: K59.00 Constipation, unspecified (principal); E11.9 Type 2 diabetes mellitus without complications; I10 Essential (primary) hypertension; Z79.4 Long term (current) use of insulin
CPT/HCPCS: 96361; 96375; 96374; 99284; J7030; J2405